=== PATIENT | female | born 1940 | race American Indian/Alaskan Native ===

== ENCOUNTER 2021-11-29 02:31 | Emergency (ER) | payer MEDICARE ==
--- NOTE | 2021-11-29 07:30 | Emergency Department Report ---
ED General Adult HPI - General Chief complaint: Altered Mental Status Stated complaint: DEMENTIA,AMS PUI?: No Time Seen by Provider: 11/29/21 07:04 Source: family (GRANDDAUGHTER) Mode of arrival: Stretcher Limitations: No Limitations - History of Present Illness Initial comments: All information is obtained from granddaughter as patient is AOX1 GCS15; pleasantly demented. This is a 72-year-old pleasantly demented female brought in by caring granddaughter with concern of violent behavior. According to the granddaughter patient has a medical history of dementia and no other medical conditions that she is aware of. The history is that patient is becoming more combative with aggressive behavior. Today patient was found wandering around in the street and [place] da silva took her to the police station and they brought her here to be medically checked. Granddaughter was notified that patient is in the ER. Granddaughter states she was recently seen at [facility] with behavior health evaluation and recommended Seroquel; however the medications helping. The patient has a history of wandering off in the street multiple times in the past and also becomes combative fighting the granddaughter who the patient herself does not know who the granddaughter is. Patient does not know who the president what year or what day it is. Patient is not able to provide any review of system. - Related Data Allergies Allergy/AdvReac Type Severity Reaction Status Date / Time No Known Allergies Allergy Unverified 11/29/21 04:53 ED Review of Systems ROS: Stated complaint: DEMENTIA,AMS Other details as noted in HPI Comment: Unobtainable due to pts medical conditions Constitutional: no symptoms reported Respiratory: no symptoms reported Endocrine: no symptoms reported ED Past Medical Hx - Past Medical History Previous Medical History?: Yes Hx Dementia: Yes - Surgical History Past Surgical History?: No - Social History Smoking Status: Never Smoker Substance Use Type: None ED Physical Exam - General Limitations: Altered Mental Status (Pleasantly demented) General appearance: alert, in no apparent distress - Head Head exam: Present: atraumatic, normocephalic, normal inspection - Eye Eye exam: Present: normal appearance, PERRL, EOMI Pupils: Present: normal accommodation - ENT ENT exam: Present: normal exam, mucous membranes moist - Neck Neck exam: Present: normal inspection, full ROM - Respiratory Respiratory exam: Present: normal lung sounds bilaterally - Cardiovascular Cardiovascular Exam: Present: regular rate, normal rhythm, normal heart sounds - GI/Abdominal GI/Abdominal exam: Present: soft - Extremities Exam Extremities exam: Present: normal inspection, full ROM, normal capillary refill - Back Exam Back exam: Present: normal inspection, full ROM - Neurological Exam Neurological exam: Present: alert, altered, CN II-XII intact, normal gait, motor sensory deficit - Psychiatric Psychiatric exam: Present: normal affect, normal mood - Skin Skin exam: Present: normal color ED Course Vital Signs 11/29/21 02:32 Temperature 98 F Pulse Rate 78 Respiratory 18 Rate Blood Pressure 132/78 O2 Sat by Pulse 100 Oximetry - Reevaluation(s) Reevaluation #1: 11/29/21 15:15 PENDING UA/COVID TEST; MENTAL HEALTH RECOMMEND INPATIENT; WILL SIGN OUT PATIENT CARE TO MY COLLEAGUE, DR. ROOT. - Consultations Consultation #1: 11/29/21 12:33 Need UA, UDS, labs and COVID test ORDER and results for inpatient psyc referral. Megha Nelson LPC Initialized on 11/29/21 07:53 - END OF NOTE I WILL OBTAIN UDS/UA/COVID TEST. ED Medical Decision Making - Lab Data Result diagrams: 11/29/21 07:31 11/29/21 07:31 Critical care attestation.: If time is entered above; I have spent that time in minutes in the direct care of this critically ill patient, excluding procedure time. ED Disposition Condition: Stable Additional Instructions: OUTPATIENT MENTAL HEALTH RESOURCES [facility], [facility] Usman Simon MD: [address], [address] [facility] [address] [place] [address] [place] [address] [facility]: [employer] [place] [address] [place] [address] [phone] [facility]: [facility]: [address] [facility] [address] [facility] [place] [address] [facility] [address] [facility]: Erik Enriquez MD: [address] [facility] [address] [place], [place] [address] [facility]: [address] [place] [phone] [place] CRISIS AND ACCESS LINE: Referrals: CARINA DE LA VEGA MD [Primary Care Provider] - 3-5 Days
[2021-11-29 09:36] LABS: Hematocrit 33.8 % (30.3-42.9); Hemoglobin 11.1 gm/dl (10.1-14.3); Mean Corpuscular HGB Conc 33 % (30-34); Mean Corpuscular Volume 93 fl (79-97); Platelet Count 212 K/mm3 (140-440); Red Blood Count 3.65 M/mm3 (3.65-5.03)
[2021-11-29 09:47] LABS: BUN/Creatinine Ratio 15; Blood Urea Nitrogen 12 mg/dL (7-17); Calcium 9.1 mg/dL (8.4-10.2); Hemolysis Index 31
[2021-11-29] MEDS ORDERED: diphenhydrAMINE 50 MG/ML VIAL IM ONE (12:38)
[2021-11-29] MEDS ORDERED: LORazepam 2 MG/ML VIAL IM ONE (12:39)
--- NOTE | 2021-11-29 13:33 | Consultation ---
History of Present Illness - Reason for Consult Consult date: 11/29/21 Reason for consult: MHE - History of Present Psychiatric Illness HPI 80 year old female was seen in the ER with grand daughter. Patient was questioned but was confused and could not give a good account of the situation. Patient thinks she is in [place] and didn't know who the president is. Patients grand daughter stated that they noted a year ago that patient was being forgetful and recently very aggressive. Patient was taken to [place] recently and was discharged with seroquel prescription which she had not filled due to the fact that patient left the house in the middle of the night on the same day. Grand daughter very worried she might endanger herself. Patient c urrently does not have a dx and not taking any medications. Psych will follow at this time and recommend inpatient psychiatric hospitalization. PAST PSYCHIATRIC HISTORY: Diagnoses: No Suicide attempts or Self-harm behavior: unable to assess Prior psychiatric hospitalizations: unable to assess Substance Abuse history:unable to assess Previous psychiatric medications tried: No Outpatient treatment: unable to assess PAST MEDICAL HISTORY: Family Psychiatric History None reported or documented SOCIAL HISTORY Marital Status: Single Living Arrangements: With grand daughter Employment Status: Retired Access to guns/weapons: unable to assess Education: unable to assess History of Abuse: unable to assess Legal History: unable to assess REVIEW OF SYSTEMS ROS cannot be reliably obtained from the patient due to her confusion and somn olence. Constitutional: Negative for weight loss ENT: Negative for stridor Respiratory: Negative for cough or hemoptysis All other systems reviewed and are negative MENTAL STATUS General Appearance and Behavior: age appropriate, good eye contact, cooperative with questioning and polite Cooperation: Combative Psychomotor Behavior: within normal limits Mood: OK Affect and affective range: Congruent with stated mood Thought Process: Disorganised Thought Content: Confused Speech: Normal volume and Regular rate and rhythm Intellectual Functioning Average Suicidal Ideation: unable to assess Homicidal Ideation: unable to assess Impulse Control: intact Insight and Judgment:Poor Memory: Confused Attention: Poor Orientation: Confused RECOMMENDATIONS MEDICAL: Per primary team DELIRIUM PRECAUTIONS: Please re-orient patient frequently, keep lights on during the day, and minimize benzodiazepines and opiates as these medications could worsen patient's confusion. 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 Please contact with any questions and/or concerns. Medications and Allergies Allergies Allergy/AdvReac Type Severity Reaction Status Date / Time No Known Allergies Allergy Unverified 11/29/21 04:53 Mental Status Exam - Vital signs Last Vital Signs Temp 98 F 11/29/21 02:32 Pulse 78 11/29/21 02:32 Resp 18 11/29/21 02:32 BP 132/78 11/29/21 02:32 Pulse Ox 100 11/29/21 02:32 Results Result Diagrams: 11/29/21 07:31 11/29/21 07:31 Abnormal lab results 11/29/21 Range/Units 07:31 WBC 4.2 L (4.5-11.0) K/mm3 RDW 13.0 L (13.2-15.2) % All other labs normal.
[2021-11-29 23:14] VITALS: BP 103/46
== END 2021-11-29 21:50 | disposition home or self-care (01) ==
LOC: EDBD → ED 02:31
DX: F03.90 Unspecified dementia, unspecified severity, without behavioral disturbance, psychotic disturbance, mood disturbance, and anxiety (principal); F91.1 Conduct disorder, childhood-onset type
CPT/HCPCS: 36415; 80048; 83735; 85027; 96372; 99283; J1200; J2060

== ENCOUNTER 2021-11-30 13:02 | Emergency (ER) | payer MEDICARE ==
--- NOTE | 2021-11-30 13:52 | Emergency Department Report ---
ED Recheck HPI - General Stated Complaint: VIOLENT BEHAVIOR Time Seen by Provider: 11/30/21 13:52 Source: patient, family Mode of arrival: Ambulatory Limitations: No Limitations - History of Present Illness Initial Comments: Patient was seen in the ER yesterday and was supposed to have been admitted. Dr. Jessica says that he turned over care to another physician and the patient was discharged. The family took the patient home but has had behavioral disturbances and outburst since. So they come back to the ER. Dr. Jessica called to triage. Case management called from triage. Patient is to be worked up again for potential admission and/or referral to neuropsych. - Related Data Allergies Allergy/AdvReac Type Severity Reaction Status Date / Time No Known Allergies Allergy Unverified 11/29/21 04:53 ED Review of Systems ROS: Stated complaint: VIOLENT BEHAVIOR Other details as noted in HPI Comment: All other systems reviewed and negative ED Past Medical Hx - Past Medical History Previous Medical History?: Yes Hx Dementia: Yes - Surgical History Past Surgical History?: Yes - Family History Family history: no significant - Social History Smoking Status: Never Smoker Substance Use Type: None ED Course Vital Signs 11/30/21 13:43 Temperature 98.9 F Pulse Rate 93 H Respiratory 14 Rate Blood Pressure 131/74 O2 Sat by Pulse 99 Oximetry ED Recheck MDM - Core Measures Measure Exclusions: not indicated - Medical Decision Making MD to see Critical care attestation.: If time is entered above; I have spent that time in minutes in the direct care of this critically ill patient, excluding procedure time. ED Disposition Clinical Impression: Dementia Disposition: 30 STILL A PATIENT Is pt being admited?: No Does the pt Need Aspirin: No Condition: Stable Time of Disposition: 16:25
[2021-11-30 13:54] VITALS: BP 131/74
[2021-11-30 15:02] LABS: Basophils % (Auto) 0.9 % (0.0-1.8); Eosinophils % (Auto) 0.8 % (0.0-4.3); Hemoglobin 11.6 gm/dl (10.1-14.3); Lymphocytes # (Auto) 1.7 K/mm3 (1.2-5.4); Mean Corpuscular HGB Conc 33 % (30-34); Mean Corpuscular Volume 92 fl (79-97); Monocytes # (Auto) 0.3 K/mm3 (0.0-0.8); Monocytes % (Auto) 7.4 % (0.0-7.3); Platelet Count 234 K/mm3 (140-440); Red Cell Distribution Width 13.3 % (13.2-15.2)
[2021-11-30 15:38] LABS: Alanine Aminotransferase 9 units/L (7-56); Albumin 4.2 g/dL (3.9-5); BUN/Creatinine Ratio 11; Blood Urea Nitrogen 11 mg/dL (7-17); Calcium 9.1 mg/dL (8.4-10.2); Hemolysis Index 3
== END 2021-11-30 19:00 | disposition still patient (30) ==
LOC: ED 13:02
DX: F03.90 Unspecified dementia, unspecified severity, without behavioral disturbance, psychotic disturbance, mood disturbance, and anxiety (principal)
CPT/HCPCS: 36415; 80053; 80320; 84443; 85025; 99283; G0480

== ENCOUNTER 2021-11-30 19:44 | Emergency (ER) | payer MEDICARE ==
[2021-11-30 23:00] LABS: Basophils # (Auto) 0.1 K/mm3 (0.0-0.1); Basophils % (Auto) 1.2 % (0.0-1.8); Eosinophils # (Auto) 0.1 K/mm3 (0.0-0.4); Eosinophils % (Auto) 1.3 % (0.0-4.3); Hematocrit 32.7 % (30.3-42.9); Hemoglobin 11.2 gm/dl (10.1-14.3); Lymphocytes # (Auto) 2.1 K/mm3 (1.2-5.4); Lymphocytes % (Auto) 43.2 % (13.4-35.0); Mean Corpuscular HGB Conc 34 % (30-34); Mean Corpuscular Volume 92 fl (79-97); Monocytes # (Auto) 0.3 K/mm3 (0.0-0.8); Monocytes % (Auto) 6.5 % (0.0-7.3); Platelet Count 217 K/mm3 (140-440); Red Blood Count 3.55 M/mm3 (3.65-5.03); Red Cell Distribution Width 13.2 % (13.2-15.2)
--- NOTE | 2021-11-30 23:10 | Emergency Department Report ---
ED Psych HPI - General Stated Complaint: AGGRESSIVE BEHAVIOR Time Seen by Provider: 11/30/21 22:29 - History of Present Illness Initial Comments: 80 yo F brought in by EMS after she was found wondering around the neighborhood. Pt was noticed wondering around he psych unit. History is very limited. - Related Data Home Medications Medication Instructions Recorded Confirmed Last Taken QUEtiapine [SEROquel] 12.5 mg PO DAILY PRN 12/02/21 12/02/21 Unknown Allergies Allergy/AdvReac Type Severity Reaction Status Date / Time No Known Allergies Allergy Verified 12/02/21 02:05 ED Review of Systems ROS: Stated complaint: AGGRESSIVE BEHAVIOR Other details as noted in HPI Comment: All other systems reviewed and negative Psychiatric: other (agitation ) ED Past Medical Hx - Past Medical History Hx Dementia: Yes - Social History Smoking Status: Never Smoker Substance Use Type: None - Medications Home Medications: Home Medications Medication Instructions Recorded Confirmed Last Taken Type QUEtiapine [SEROquel] 12.5 mg PO DAILY PRN 12/02/21 12/02/21 Unknown History ED Physical Exam - General Limitations: No Limitations General appearance: alert, in no apparent distress, other (restless) - Head Head exam: Present: normal inspection - Eye Eye exam: Present: normal appearance - ENT ENT exam: Present: normal exam, normal orophraynx, mucous membranes moist - Neck Neck exam: Present: normal inspection. Absent: tenderness - Respiratory Respiratory exam: Present: normal lung sounds bilaterally. Absent: respiratory distress, accessory muscle use - Cardiovascular Cardiovascular Exam: Present: regular rate, normal rhythm, normal heart sounds - GI/Abdominal GI/Abdominal exam: Present: soft, normal bowel sounds. Absent: distended, tenderness - Extremities Exam Extremities exam: Present: normal inspection, full ROM, normal capillary refill. Absent: tenderness, pedal edema - Back Exam Back exam: Present: normal inspection. Absent: tenderness - Neurological Exam Neurological exam: Present: alert, oriented X3 - Psychiatric Psychiatric exam: Present: agitated, anxious, other (restless) - Skin Skin exam: Present: warm, normal color ED Course Vital Signs 11/30/21 12/01/21 12/01/21 23:29 08:16 08:17 Temperature 98.8 F Pulse Rate 98 H 86 Respiratory 16 18 Rate Blood Pressure 105/55 107/59 [Left] O2 Sat by Pulse 98 98 98 Oximetry 12/01/21 15:59 Temperature 98.1 F Pulse Rate 81 Respiratory 20 Rate Blood Pressure 126/83 [Left] O2 Sat by Pulse 97 Oximetry ED Medical Decision Making - Lab Data Result diagrams: 11/30/21 22:32 11/30/21 22:32 - Medical Decision Making here for mental evaluation -- after she was found wondering around neighborhood -- will order routine labs for any organic cause -- Critical care attestation.: If time is entered above; I have spent that time in minutes in the direct care of this critically ill patient, excluding procedure time. ED Disposition Clinical Impression: Agitation, Restless Disposition: ADMITTED INPATIENT Is pt being admited?: Yes Does the pt Need Aspirin: No Condition: Stable Additional Instructions: OUTPATIENT MENTAL HEALTH RESOURCES [facility], [facility] Usman Simon MD: [address] [place] [address] [place] [address] [place] [facility]: [employer] [place] [address] [place] [address] [phone] [facility] Integrative Psychiatry: [facility]: [address] [facility] [address] [facility] [place] [address] [facility] [id number] [facility]: Erik Enriquez MD: [address] [facility] [address] [facility] [address] [id number] [facility]: [address] [facility] [address] [phone] [place] CRISIS AND ACCESS LINE: Referrals: CARINA DE LA VEGA MD [Primary Care Provider] - 3-5 Days
[2021-11-30 23:13] LABS: Albumin 4.2 g/dL (3.9-5); Calcium 9.2 mg/dL (8.4-10.2)
[2021-11-30] MEDS ORDERED: ZIPRASIDONE MESYLATE 20 MG VIAL IM ONE (23:15)
[2021-12-01 13:18] LABS: Amphetamine Screen,Urine Negative; Benzodiazepines Screen,Urine Negative; Cannabinoid Screen,Urine Negative; Cocaine Screen,Urine Negative; Methadone Screen,Urine Negative; Opiate Screen,Urine Negative
[2021-12-01 13:22] LABS: Bacteria,Urine 1+ /HPF (Negative); Hyaline Casts,Urine 1 /LPF; Mucus,Urine FEW /HPF
[2021-12-01 13:32] LABS: Color,Urine Straw (Yellow)
[2021-12-01 13:33] LABS: Bilirubin,Urine Negative (Negative); Blood,Urine Negative (Negative); Protein,Urine <30 mg dL mg/dL (Negative)
[2021-12-01 13:34] LABS: Urobilinogen,Urine < 2.0 mg/dL (<2.0)
--- NOTE | 2021-12-01 15:00 | Consultation ---
History of Present Illness - Reason for Consult Consult date: 11/30/21 Reason for consult: MHE - Chief Complaint Chief complaint: - History of Present Psychiatric Illness HPI 80 year old female was seen in the ER with grand daughter. Patient was questioned but was confused and could not give a good account of the situation. Patient thinks she is in [place] and didn't know who the president is. Patients grand daughter stated that they noted a year ago that patient was being forgetful and recently very aggressive. Patient was taken to [place] recently and was discharged with seroquel prescription which she had not filled due to the fact that patient left the house in the middle of the night on the same day. Grand daughter very worried she might endanger herself. Patient currently does not have a dx and not taking any medications. Psych will follow at this time and recommend inpatient psychiatric hospitalization. PAST PSYCHIATRIC HISTORY: Diagnoses: No Suicide attempts or Self-harm behavior: unable to assess Prior psychiatric hospitalizations: unable to assess Substance Abuse history:unable to assess Previous psychiatric medications tried: No Outpatient treatment: unable to assess PAST MEDICAL HISTORY: Family Psychiatric History None reported or documented SOCIAL HISTORY Marital Status: Single Living Arrangements: With grand daughter Employment Status: Retired Access to guns/weapons: unable to assess Education: unable to assess History of Abuse: unable to assess Legal History: unable to assess REVIEW OF SYSTEMS ROS cannot be reliably obtained from the patient due to her confusion and somnolence. Constitutional: Negative for weight loss ENT: Negative for stridor Respiratory: Negative for cough or hemoptysis All other systems reviewed and are negative MENTAL STATUS General Appearance and Behavior: age appropriate, good eye contact, cooperative with questioning and polite Cooperation: Combative Psychomotor Behavior: within normal limits Mood: OK Affect and affective range: Congruent with stated mood Thought Process: Disorganised Thought Content: Confused Speech: Normal volume and Regular rate and rhythm Intellectual Functioning Average Suicidal Ideation: unable to assess Homicidal Ideation: unable to assess Impulse Control: intact Insight and Judgment:Poor Memory: Confused Attention: Poor Orientation: Confused RECOMMENDATIONS MEDICAL: Per primary team DELIRIUM PRECAUTIONS: Please re-orient patient frequently, keep lights on during the day, and minimize benzodiazepines and opiates as these medications could worsen patient's confusion. 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 Please contact with any questions and/or concerns. Medications and Allergies Medications and Allergies Allergies Allergy/AdvReac Type Severity Reaction Status Date / Time No Known Allergies Allergy Unverified 11/29/21 04:53 Mental Status Exam - Vital signs Last Vital Signs Temp 98.8 F 12/01/21 08:16 Pulse 86 12/01/21 08:16 Resp 18 12/01/21 08:16 BP 107/59 12/01/21 08:16 Pulse Ox 98 12/01/21 08:17 Results Result Diagrams: 11/30/21 22:32 11/30/21 22:32 Abnormal lab results 11/30/21 11/30/21 11/30/21 Range/Units 22:32 22:32 22:32 RBC 3.55 L (3.65-5.03) M/mm3 Lymph % (Auto) 43.2 H (13.4-35.0) % Creatinine 1.3 H (0.6-1.2) mg/dL Glucose 104 H (65-100) mg/dL U Epithel Cells (Auto) (0-13.0) /HPF Salicylates < 0.3 L (2.8-20.0) mg/dL Acetaminophen (10.0-30.0) ug/mL 11/30/21 12/01/21 Range/Units 22:32 12:56 RBC (3.65-5.03) M/mm3 Lymph % (Auto) (13.4-35.0) % Creatinine (0.6-1.2) mg/dL Glucose (65-100) mg/dL U Epithel Cells (Auto) 16.0 H (0-13.0) /HPF Salicylates (2.8-20.0) mg/dL Acetaminophen 5.0 L (10.0-30.0) ug/mL All other labs normal.
[2021-12-01 15:59] VITALS: BP 126/83
--- NOTE | 2021-12-01 16:04 | Event Note ---
Date: 12/01/21 Patient received a geriatric psych bed. Will discharge from ED.
== END 2021-12-01 19:58 | disposition admitted as inpatient to this hospital (09) ==
LOC: EEVIPCON 19:44 → ED 19:44
DX: R45.1 Restlessness and agitation (principal); F03.90 Unspecified dementia, unspecified severity, without behavioral disturbance, psychotic disturbance, mood disturbance, and anxiety; Z20.822 Contact with and (suspected) exposure to COVID-19
CPT/HCPCS: 36415; 80053; 80307; 81001; 84443; 85025; 96372; 99284; J3486; U0003; 80320; G0480

== ENCOUNTER 2021-12-01 15:36 | Inpatient (IN) | payer MEDICARE ==
--- NOTE | 2021-12-02 11:39 | History and Physical Report ---
GP History & Physical - History of Present Illness Date of admission: 12/01/21 Date of Examination: 12/02/21 Reason for Admission: Danger to self, Severe anxiety/depression History of Present Illness: HPI 80 year old seen today in the day room. Patient was unable to give a clear account of why she was brought to the hospital and is a poor historian. Grand daughter gave most of the information that is recorded. PAST PSYCHIATRIC HISTORY: Diagnoses: None Suicide attempts or Self-harm behavior Prior psychiatric hospitalizations Substance Abuse history: Previous psychiatric medications tried: Outpatient treatment: PAST MEDICAL HISTORY: Family Psychiatric History None reported or documented SOCIAL HISTORY Marital Status: Single Living Arrangements: With grand daughter Employment Status: Retired Access to guns/weapons: Denies Education: Unable to access History of Abuse: Unable to access Legal History: Unable to access REVIEW OF SYSTEMS ROS cannot be reliably obtained from the patient due to her confusion and somnolence. Constitutional: Negative for weight loss ENT: Negative for stridor Respiratory: Negative for cough or hemoptysis All other systems reviewed and are negative Diagnoses: Dementia with behavioral disturbances Treatment Plan Patient will be admitted for inpatient psychiatric evaluation, medication adjustment and close monitoring The patient's behavior, mood, sleep and appetite will be closely monitored. Patient will be enrolled in individual and group therapeutic sessions and encouraged to attend. Patient will be provided with a safe and structured environment. Patient's physical health needs will be addressed by the Hospitalist. Hospitalist Consulted Labs including CBC, CMP, Lipid profile and Hemoglobin A1C ordered Social Assessment will be completed and the Transit Mix Operator will work with patient and family to ensure a suitable and safe disposition Medication adjustment will be made as clinically indicated Usual Wellness Latter-Day/Preservation: - Start [place]-3 for brain health, reduce impulsivity, and as adjunctive treatment for mood disorder, continue upon discharge given overall benefits. The patient agreed on the treatment plan, understood the risk, benefit, alternative treatment, potential consequence of no treatment, and gave informed consent. Legal Status: Involuntary Reaction to Hospitalization: Accepting Medications and Allergies Allergies Allergy/AdvReac Type Severity Reaction Status Date / Time No Known Allergies Allergy Verified 12/02/21 02:05 Home Medications Medication Instructions Recorded Confirmed Last Taken Type QUEtiapine [SEROquel] 12.5 mg PO DAILY PRN 12/02/21 12/02/21 Unknown History Results - Results Labs/Vitals: Last Vital Signs Temp 97.7 F 12/01/21 21:40 Pulse 87 12/01/21 21:40 Resp 18 12/01/21 21:40 BP 90/66 12/01/21 21:40 Pulse Ox 100 12/01/21 21:40 Physical Examination - Constitutional Vitals: Vital Signs Temp Pulse Resp BP Pulse Ox 97.7 F 87 18 90/66 100 12/01/21 21:40 12/01/21 21:40 12/01/21 21:40 12/01/21 21:40 12/01/21 21:40 Temperature -Last 24 Hours Temperature 97.7 F Mental Status Exam - Vital signs Last Vital Signs Temp 97.7 F 12/01/21 21:40 Pulse 87 12/01/21 21:40 Resp 18 12/01/21 21:40 BP 90/66 12/01/21 21:40 Pulse Ox 100 12/01/21 21:40 Physician Certification - Certification Statement Physician Certification Statement: This is an acknowledgement statement that MILLY LAUREN is a 80 year old F who requires inpatient psychiatric admission for treatment which could reasonably be expected to improve the patient's condition for Estimated period of time patient will need to remain in the hospital: [ ] Plan for post-hospital care: [ ]
[2021-12-02 12:32] LABS: Chol/HDL Ratio 2.45 %
[2021-12-02 13:22] LABS: Hepatitis B Surface Antigen Non-Reactive (Negative); Hepatitis C Virus Antibody Non-Reactive (NonReactive)
[2021-12-02] MEDS: LORazepam 0.5 MG TAB PO PRN (18:34)
--- NOTE | 2021-12-02 19:40 | Consultation ---
History of Present Illness - Reason for Consult Consult date: 12/02/21 Medical consult Requesting physician: DENG LAMBERT - History of Present Illness 80-year-old female patient with no significant past medical history was admitted [facility] with history of danger to self, severeanxiety and depression Hospitalist service yes requested medical consult and management Patient was minimally communicative most of the history is taken from a psych chart patient was brought by her family because of danger to self and due to severe anxiety and depression Patient unable to give history, no known medical history Patient denies any headache or dizziness Patient denies any chest pain or shortness of breath denies any nausea vomiting, but is very anxious Patient lives with her granddaughter Past History Past Medical History: other (Anxiety and depression) Past Surgical History: No surgical history Social history: denies: smoking, alcohol abuse, prescription drug abuse Family history: no significant family history Medications and Allergies Allergies Allergy/AdvReac Type Severity Reaction Status Date / Time No Known Allergies Allergy Verified 12/02/21 02:05 Home Medications Medication Instructions Recorded Confirmed Last Taken Type QUEtiapine [SEROquel] 12.5 mg PO DAILY PRN 12/02/21 12/02/21 Unknown History Active Meds: Active Medications Lorazepam (Lorazepam 0.5 Mg Tab) 0.5 mg PO Q6H PRN PRN Reason: Agitation Last Admin: 12/02/21 18:34 Dose: 0.5 mg Quetiapine Fumarate (Quetiapine 25 Mg Tab) 12.5 mg PO QHS RADHA Review of Systems Constitutional: fatigue, weakness Ears, nose, mouth and throat: no nasal discharge, no sinus pressure Cardiovascular: no chest pain, no shortness of breath Respiratory: no cough, no shortness of breath Gastrointestinal: no abdominal pain, no nausea, no vomiting Genitourinary Female: no pelvic pain, no dysuria Musculoskeletal: no myalgias, no arthritis Integumentary: no rash, no lesions Neurological: no seizures, no syncope Psychiatric: anxiety, depression Endocrine: no cold intolerance, no heat intolerance Hematologic/Lymphatic: no easy bruising, no easy bleeding Allergic/Immunologic: no urticaria, no allergic rhinitis Exam - Constitutional Vitals: Temp Pulse Resp BP Pulse Ox 97.7 F 87 18 90/66 100 12/01/21 21:40 12/01/21 21:40 12/01/21 21:40 12/01/21 21:40 12/01/21 21:40 General appearance: Present: no acute distress, well-nourished, other - EENT Eyes: Present: PERRL, EOM intact - Neck Neck: Present: supple, normal ROM - Respiratory Respiratory effort: normal Respiratory: bilateral: diminished, negative: rales, rhonchi, wheezing - Cardiovascular Rhythm: regular Heart Sounds: Present: S1 & S2 - Extremities Extremities: no ischemia, No edema - Abdominal General gastrointestinal: Present: soft, non-tender, non-distended, normal bowel sounds - Integumentary Integumentary: Present: clear, warm - Musculoskeletal Musculoskeletal: strength equal bilaterally, generalized weakness - Psychiatric Psychiatric: cooperative, depressed - Neurologic Neurologic: moves all extremities Results - Labs Labs: Abnormal lab results 12/02/21 12/02/21 Range/Units 11:20 11:20 Hemoglobin A1c 6.1 H (4-6) % Cholesterol 201 H (50-199) mg/dL HDL Cholesterol 82 H (40-59) mg/dL Assessment and Plan --Danger to self; Continue supervision, fall precautions Supportive care --severe anxiety and depression Management per psych -- DVT prophylaxis; SCDs while resting, ambulate as tolerated --Full CODE STATUS We will closely monitor the patient and adjust management as needed Plan of care reviewed with the patient and her nurse Thank you for this consultation We will follow the patient along with you
[2021-12-02] MEDS ORDERED: QUEtiapine 25 MG TAB PO SCH (22:00)
[2021-12-03] MEDS: LORazepam 0.5 MG TAB PO PRN ×2 (00:28→13:16)
--- NOTE | 2021-12-03 10:30 | Progress Note ---
Subjective Date of service: 12/03/21 Principal diagnosis: Dementia w/Behavioral Disturbance Subjective Comment: The patient was seen today. She is calm, cooperative and pleasant. She says she slept good and feels good. She denies SI/HI or hallucinations. Staff says the patient becomes more confused and agitated as the day goes by. She has also been observed responding to internal stimuli and delusional. REVIEW OF SYSTEMS ROS cannot be reliably obtained from the patient due to her confusion and somnolence. Constitutional: Negative for weight loss ENT: Negative for stridor Respiratory: Negative for cough or hemoptysis All other systems reviewed and are negative Diagnoses: Dementia with behavioral disturbances Treatment Plan Patient will be admitted for inpatient psychiatric evaluation, medication adjustment and close monitoring The patient's behavior, mood, sleep and appetite will be closely monitored. Patient will be enrolled in individual and group therapeutic sessions and encouraged to attend. Patient will be provided with a safe and structured environment. Patient's physical health needs will be addressed by the Hospitalist. Hospitalist Consulted Labs including CBC, CMP, Lipid profile and Hemoglobin A1C ordered Social Assessment will be completed and the Supervisor Cell Operation will work with patient and family to ensure a suitable and safe disposition Medication adjustment will be made as clinically indicated D/c seroquel Start Risperidone 0.25mg po BID Usual Wellness Orthodoxy/Preservation: - Start [place]-3 for brain health, reduce impulsivity, and as adjunctive treatment for mood disorder, continue upon discharge given overall benefits. The patient agreed on the treatment plan, understood the risk, benefit, alternative treatment, potential consequence of no treatment, and gave informed consent. Medications and Allergies Allergies Allergy/AdvReac Type Severity Reaction Status Date / Time No Known Allergies Allergy Verified 12/02/21 02:05 Home Medications Medication Instructions Recorded Confirmed Last Taken Type QUEtiapine [SEROquel] 12.5 mg PO DAILY PRN 12/02/21 12/02/21 Unknown History Active Meds: Active Medications Lorazepam (Lorazepam 0.5 Mg Tab) 0.5 mg PO Q6H PRN PRN Reason: Agitation Last Admin: 12/03/21 00:28 Dose: 0.5 mg Quetiapine Fumarate (Quetiapine 25 Mg Tab) 12.5 mg PO QHS RADHA Last Admin: 12/02/21 21:29 Dose: 12.5 mg Results - Results Labs/Vitals: Laboratory Last Values Hemoglobin A1c 6.1 % (4-6) H 12/02/21 11:20 Triglycerides 62 mg/dL (2-149) 12/02/21 11:20 Cholesterol 201 mg/dL (50-199) H 12/02/21 11:20 LDL Cholesterol Direct 112 mg/dL (50-130) 12/02/21 11:20 HDL Cholesterol 82 mg/dL (40-59) H 12/02/21 11:20 Cholesterol/HDL Ratio 2.45 % 12/02/21 11:20 TSH 0.721 mlU/mL (0.270-4.200) 12/02/21 11:20 Hepatitis A IgM Ab Non-reactive (NonReactive) 12/02/21 11:20 Hep Bs Antigen Non-reactive (Negative) 12/02/21 11:20 Hep B Core IgM Ab Non-reactive (NonReactive) 12/02/21 11:20 Hepatitis C Antibody Non-reactive (NonReactive) 12/02/21 11:20 Last Vital Signs Temp 98.4 F 12/02/21 19:40 Pulse 82 12/02/21 19:40 Resp 16 12/03/21 01:51 BP 90/66 12/01/21 21:40 Pulse Ox 100 12/03/21 01:51
--- NOTE | 2021-12-03 20:25 | Progress Note ---
Assessment and Plan Assessment and plan: --Danger to self; Continue supervision, fall precautions Supportive care --severe anxiety and depression Management per psych -- DVT prophylaxis; SCDs while resting, ambulate as tolerated --Full CODE STATUS Continue current management We will closely monitor the patient and adjust management as needed Plan of care reviewed with the patient and her nurse Thank you for this consultation We will follow the patient along with you History Interval history: I have seen and examined the patient in the room this afternoon. Patient has no new complaints Alert and awake responding appropriately Vital signs noted No new overnight events reported by nursing Hospitalist Physical - Constitutional Vitals: Temp Pulse Resp BP Pulse Ox 98.4 F 82 16 90/66 100 12/02/21 19:40 12/02/21 19:40 12/03/21 01:51 12/01/21 21:40 12/03/21 01:51 General appearance: Present: no acute distress, well-nourished, other - EENT Eyes: Present: PERRL, EOM intact - Neck Neck: Present: supple, normal ROM - Respiratory Respiratory effort: normal Respiratory: bilateral: diminished, negative: rales, rhonchi, wheezing - Cardiovascular Rhythm: regular Heart Sounds: Present: S1 & S2 - Extremities Extremities: no ischemia, No edema - Abdominal General gastrointestinal: soft, non-tender, non-distended, normal bowel sounds - Integumentary Integumentary: Present: clear, warm - Psychiatric Psychiatric: appropriate mood/affect, cooperative - Neurologic Neurologic: moves all extremities Results - Labs Labs: Laboratory Last Values Hemoglobin A1c 6.1 % (4-6) H 12/02/21 11:20 Triglycerides 62 mg/dL (2-149) 12/02/21 11:20 Cholesterol 201 mg/dL (50-199) H 12/02/21 11:20 LDL Cholesterol Direct 112 mg/dL (50-130) 12/02/21 11:20 HDL Cholesterol 82 mg/dL (40-59) H 12/02/21 11:20 Cholesterol/HDL Ratio 2.45 % 12/02/21 11:20 TSH 0.721 mlU/mL (0.270-4.200) 12/02/21 11:20 Hepatitis A IgM Ab Non-reactive (NonReactive) 12/02/21 11:20 Hep Bs Antigen Non-reactive (Negative) 12/02/21 11:20 Hep B Core IgM Ab Non-reactive (NonReactive) 12/02/21 11:20 Hepatitis C Antibody Non-reactive (NonReactive) 12/02/21 11:20 Cobb/IV: Voiding Method Incontinent Active Medications - Current Medications Current Medications: Generic Name Dose Route Start Last Admin Trade Name Freq PRN Reason Stop Dose Admin Lorazepam 0.5 mg 12/02/21 18:11 12/03/21 13:16 Lorazepam 0.5 Mg Tab PO 0.5 mg Q6H PRN Administration Agitation Risperidone 0.25 mg 12/03/21 22:00 Risperidone 0.25 Mg Tab PO BID RADHA
[2021-12-03] MEDS: risperiDONE 0.25 MG TAB PO SCH (21:38)
--- NOTE | 2021-12-04 08:21 | Progress Note ---
Subjective Date of service: 12/04/21 Principal diagnosis: Dementia w/Behavioral Disturbance Subjective Comment: The patient was seen today. She is sleeping, but easily arouses. She is confused. She says she slept well. She denies SI/HI or hallucinations. 12/03 The patient was seen today. She is calm, cooperative and pleasant. She says she slept good and feels good. She denies SI/HI or hallucinations. Staff says the patient becomes more confused and agitated as the day goes by. She has also been observed responding to internal stimuli and delusional. REVIEW OF SYSTEMS ROS cannot be reliably obtained from the patient due to her confusion and somnolence. Constitutional: Negative for weight loss ENT: Negative for stridor Respiratory: Negative for cough or hemoptysis All other systems reviewed and are negative Diagnoses: Dementia with behavioral disturbances Treatment Plan Patient will be admitted for inpatient psychiatric evaluation, medication adjustment and close monitoring The patient's behavior, mood, sleep and appetite will be closely monitored. Patient will be enrolled in individual and group therapeutic sessions and enc ouraged to attend. Patient will be provided with a safe and structured environment. Patient's physical health needs will be addressed by the Hospitalist. Hospitalist Consulted Labs including CBC, CMP, Lipid profile and Hemoglobin A1C ordered Social Assessment will be completed and the Employee Communications Coordinator will work with patient and family to ensure a suitable and safe disposition Medication adjustment will be made as clinically indicated Start Risperidone 0.25mg po BID yesterday No changes made today Usual Wellness Yarsani/Preservation: - Start [place]-3 for brain health, reduce impulsivity, and as adjunctive treatment for mood disorder, continue upon discharge given overall benefits. The patient agreed on the treatment plan, understood the risk, benefit, alternative treatment, potential consequence of no treatment, and gave informed consent. Medications and Allergies Allergies Allergy/AdvReac Type Severity Reaction Status Date / Time No Known Allergies Allergy Verified 12/02/21 02:05 Home Medications Medication Instructions Recorded Confirmed Last Taken Type QUEtiapine [SEROquel] 12.5 mg PO DAILY PRN 12/02/21 12/02/21 Unknown History Active Meds: Active Medications Lorazepam (Lorazepam 0.5 Mg Tab) 0.5 mg PO Q6H PRN PRN Reason: Agitation Last Admin: 12/03/21 13:16 Dose: 0.5 mg Risperidone (Risperidone 0.25 Mg Tab) 0.25 mg PO BID [facility] Last Admin: 12/03/21 21:38 Dose: 0.25 mg Results - Results Labs/Vitals: Laboratory Last Values Hemoglobin A1c 6.1 % (4-6) H 12/02/21 11:20 Triglycerides 62 mg/dL (2-149) 12/02/21 11:20 Cholesterol 201 mg/dL (50-199) H 12/02/21 11:20 LDL Cholesterol Direct 112 mg/dL (50-130) 12/02/21 11:20 HDL Cholesterol 82 mg/dL (40-59) H 12/02/21 11:20 Cholesterol/HDL Ratio 2.45 % 12/02/21 11:20 TSH 0.721 mlU/mL (0.270-4.200) 12/02/21 11:20 Hepatitis A IgM Ab Non-reactive (NonReactive) 12/02/21 11:20 Hep Bs Antigen Non-reactive (Negative) 12/02/21 11:20 Hep B Core IgM Ab Non-reactive (NonReactive) 12/02/21 11:20 Hepatitis C Antibody Non-reactive (NonReactive) 12/02/21 11:20 Last Vital Signs Temp 97.6 F 12/03/21 20:00 Pulse 80 12/03/21 20:00 Resp 16 12/03/21 20:00 BP 111/76 12/03/21 20:00 Pulse Ox 99 12/03/21 20:00
[2021-12-04] MEDS: risperiDONE 0.25 MG TAB PO SCH ×2 (09:08→21:35)
[2021-12-04] MEDS: LORazepam 0.5 MG TAB PO PRN ×2 (11:30→21:35)
--- NOTE | 2021-12-04 15:14 | Progress Note ---
Assessment and Plan Assessment and plan: --Danger to self; Continue supervision, fall precautions Supportive care --severe anxiety and depression Management per psych -- DVT prophylaxis; SCDs while resting, ambulate as tolerated --Full CODE STATUS Continue current management We will closely monitor the patient and adjust management as needed Plan of care reviewed with the patient and her nurse Thank you for this consultation We will follow the patient along with you History Interval history: I have seen and examined the patient at the bedside Patient's chart and records reviewed No new overnight events reported by the nursing Hospitalist Physical - Constitutional Vitals: Temp Pulse Resp BP Pulse Ox 98.5 F 90 18 109/51 100 12/04/21 09:43 12/04/21 09:43 12/04/21 09:43 12/04/21 09:43 12/04/21 09:43 General appearance: Present: no acute distress, well-nourished, other - EENT Eyes: Present: PERRL, EOM intact - Neck Neck: Present: supple, normal ROM - Respiratory Respiratory effort: normal Respiratory: bilateral: diminished, negative: rales, rhonchi, wheezing - Cardiovascular Rhythm: regular Heart Sounds: Present: S1 & S2 - Extremities Extremities: no ischemia, No edema - Abdominal General gastrointestinal: soft, non-tender, non-distended, normal bowel sounds - Integumentary Integumentary: Present: clear, warm - Psychiatric Psychiatric: appropriate mood/affect, other (Confused at times) - Neurologic Neurologic: CNII-XII intact, moves all extremities Results - Labs Labs: Laboratory Last Values Hemoglobin A1c 6.1 % (4-6) H 12/02/21 11:20 Triglycerides 62 mg/dL (2-149) 12/02/21 11:20 Cholesterol 201 mg/dL (50-199) H 12/02/21 11:20 LDL Cholesterol Direct 112 mg/dL (50-130) 12/02/21 11:20 HDL Cholesterol 82 mg/dL (40-59) H 12/02/21 11:20 Cholesterol/HDL Ratio 2.45 % 12/02/21 11:20 TSH 0.721 mlU/mL (0.270-4.200) 12/02/21 11:20 Hepatitis A IgM Ab Non-reactive (NonReactive) 12/02/21 11:20 Hep Bs Antigen Non-reactive (Negative) 12/02/21 11:20 Hep B Core IgM Ab Non-reactive (NonReactive) 12/02/21 11:20 Hepatitis C Antibody Non-reactive (NonReactive) 12/02/21 11:20 Cobb/IV: Voiding Method Toilet Active Medications - Current Medications Current Medications: Generic Name Dose Route Start Last Admin Trade Name Freq PRN Reason Stop Dose Admin Lorazepam 0.5 mg 12/02/21 18:11 12/04/21 11:30 Lorazepam 0.5 Mg Tab PO 0.5 mg Q6H PRN Administration Agitation Risperidone 0.25 mg 12/03/21 22:00 12/04/21 09:08 Risperidone 0.25 Mg Tab PO 0.25 mg BID RADHA Administration
--- NOTE | 2021-12-05 09:46 | Progress Note ---
Subjective Date of service: 12/05/21 Principal diagnosis: Dementia w/Behavioral Disturbance Subjective Comment: The patient was seen today. She says she is doing fine and denies hallucinations. Staff notes that at times the patient is tearful, agitated and seeking exits 12/04 The patient was seen today. She is sleeping, but easily arouses. She is confused. She says she slept well. She denies SI/HI or hallucinations. 12/03 The patient was seen today. She is calm, cooperative and pleasant. She says she slept good and feels good. She denies SI/HI or hallucinations. Staff says the patient becomes more confused and agitated as the day goes by. She has also been observed responding to internal stimuli and delusional. REVIEW OF SYSTEMS ROS cannot be reliably obtained from the patient due to her confusion and somnolence. Constitutional: Negative for weight loss ENT: Negative for stridor Respiratory: Negative for cough or hemoptysis All other systems reviewed and are negative Diagnoses: Dementia with behavioral disturbances Treatment Plan Patient will be admitted for inpatient psychiatric evaluation, medication adjustment and close monitoring The patient's behavior, mood, sleep and appetite will be closely monitored. Patient will be enrolled in individual and group therapeutic sessions and encouraged to attend. Patient will be provided with a safe and structured environment. Patient's physical health needs will be addressed by the Hospitalist. Hospitalist Consulted Labs including CBC, CMP, Lipid profile and Hemoglobin A1C ordered Social Assessment will be completed and the Entry Level Automotive Technician will work with patient and family to ensure a suitable and safe disposition Medication adjustment will be made as clinically indicated Start Depakote DR 125mg po BID Usual Wellness Yazidi/Preservation: - Start [place]-3 for brain health, reduce impulsivity, and as adjunctive treatment for mood disorder, continue upon discharge given overall benefits. The patient agreed on the treatment plan, understood the risk, benefit, alternative treatment, potential consequence of no treatment, and gave informed consent. Medications and Allergies Allergies Allergy/AdvReac Type Severity Reaction Status Date / Time No Known Allergies Allergy Verified 12/02/21 02:05 Home Medications Medication Instructions Recorded Confirmed Last Taken Type QUEtiapine [SEROquel] 12.5 mg PO DAILY PRN 12/02/21 12/02/21 Unknown History Active Meds: Active Medications Lorazepam (Lorazepam 0.5 Mg Tab) 0.5 mg PO Q6H PRN PRN Reason: Agitation Last Admin: 12/04/21 21:35 Dose: 0.5 mg Risperidone (Risperidone 0.25 Mg Tab) 0.25 mg PO BID RADHA Last Admin: 12/04/21 21:35 Dose: 0.25 mg Results - Results Labs/Vitals: Laboratory Last Values Hemoglobin A1c 6.1 % (4-6) H 12/02/21 11:20 Triglycerides 62 mg/dL (2-149) 12/02/21 11:20 Cholesterol 201 mg/dL (50-199) H 12/02/21 11:20 LDL Cholesterol Direct 112 mg/dL (50-130) 12/02/21 11:20 HDL Cholesterol 82 mg/dL (40-59) H 12/02/21 11:20 Cholesterol/HDL Ratio 2.45 % 12/02/21 11:20 TSH 0.721 mlU/mL (0.270-4.200) 12/02/21 11:20 Hepatitis A IgM Ab Non-reactive (NonReactive) 12/02/21 11:20 Hep Bs Antigen Non-reactive (Negative) 12/02/21 11:20 Hep B Core IgM Ab Non-reactive (NonReactive) 12/02/21 11:20 Hepatitis C Antibody Non-reactive (NonReactive) 12/02/21 11:20 Last Vital Signs Temp 98.3 F 12/04/21 19:53 Pulse 104 H 12/04/21 19:53 Resp 17 12/04/21 19:53 BP 105/50 12/04/21 19:53 Pulse Ox 100 12/04/21 19:53
[2021-12-05] MEDS: DIVALPROEX DR 125 MG TAB PO SCH ×2 (10:25→22:21)
[2021-12-05] MEDS: risperiDONE 0.25 MG TAB PO SCH ×2 (10:25→22:21)
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
--- NOTE | 2021-12-05 13:46 | Progress Note ---
Assessment and Plan Assessment and plan: --Danger to self; Continue supervision, fall precautions Supportive care --severe anxiety and depression Management per psych -- DVT prophylaxis; SCDs while resting, ambulate as tolerated --Full CODE STATUS Continue current management We will closely monitor the patient and adjust management as needed Plan of care reviewed with the patient and her nurse Thank you for this consultation We will follow the patient along with you Call us with questions History Interval history: Seen and examined the patient in the day room today Patient's chart and medications reviewed Nurse was trying to give her her morning meds, patient is adamantly refusing Getting angry and becoming verbal Slightly agitated vital signs noted Patient did not have any new overnight events Hospitalist Physical - Constitutional Vitals: Temp Pulse Resp BP Pulse Ox 100.2 F H 83 18 102/44 97 12/05/21 08:50 12/05/21 08:50 12/05/21 08:50 12/05/21 08:50 12/05/21 08:50 General appearance: Present: no acute distress, well-nourished, other - EENT Eyes: Present: PERRL, EOM intact, scleral icterus - Neck Neck: Present: supple, normal ROM - Respiratory Respiratory effort: normal Respiratory: bilateral: diminished, negative: rales, rhonchi, wheezing - Cardiovascular Rhythm: regular Heart Sounds: Present: S1 & S2 - Extremities Extremities: no ischemia, No edema - Abdominal General gastrointestinal: soft, non-tender, non-distended, normal bowel sounds - Integumentary Integumentary: Present: clear, warm - Psychiatric Psychiatric: appropriate mood/affect, cooperative - Neurologic Neurologic: CNII-XII intact, moves all extremities Results - Labs Labs: Laboratory Last Values Hemoglobin A1c 6.1 % (4-6) H 12/02/21 11:20 Triglycerides 62 mg/dL (2-149) 12/02/21 11:20 Cholesterol 201 mg/dL (50-199) H 12/02/21 11:20 LDL Cholesterol Direct 112 mg/dL (50-130) 12/02/21 11:20 HDL Cholesterol 82 mg/dL (40-59) H 12/02/21 11:20 Cholesterol/HDL Ratio 2.45 % 12/02/21 11:20 TSH 0.721 mlU/mL (0.270-4.200) 12/02/21 11:20 Hepatitis A IgM Ab Non-reactive (NonReactive) 12/02/21 11:20 Hep Bs Antigen Non-reactive (Negative) 12/02/21 11:20 Hep B Core IgM Ab Non-reactive (NonReactive) 12/02/21 11:20 Hepatitis C Antibody Non-reactive (NonReactive) 12/02/21 11:20 Cobb/IV: Voiding Method Toilet Active Medications - Current Medications Current Medications: Generic Name Dose Route Start Last Admin Trade Name Freq PRN Reason Stop Dose Admin Divalproex Sodium 125 mg 12/05/21 10:00 12/05/21 10:[address] 125 Mg Tab PO 125 mg BID RADHA Administration Lorazepam 0.5 mg 12/02/21 18:11 12/04/21 21:35 Lorazepam 0.5 Mg Tab PO 0.5 mg Q6H PRN Administration Agitation Risperidone 0.25 mg 12/03/21 22:00 12/05/21 10:25 Risperidone 0.25 Mg Tab PO 0.25 mg BID RADHA Administration Sertraline HCl 25 mg 12/05/21 12:00 Sertraline 25 Mg Tab PO QDAY RADHA Trazodone HCl 50 mg 12/05/21 22:00 Trazodone 50 Mg Tab PO QHS RADHA
[2021-12-05] MEDS: SERTRALINE 25 MG TAB PO SCH (14:05)
[2021-12-05] MEDS: LORazepam 0.5 MG TAB PO PRN (14:20)
[2021-12-05] MEDS: traZODone 50 MG TAB PO SCH (22:21)
--- NOTE | 2021-12-06 08:25 | Progress Note ---
Assessment and Plan Assessment and plan: --Danger to self; Continue supervision, fall precautions Supportive care --severe anxiety and depression Management per psych -- DVT prophylaxis; SCDs while resting, ambulate as tolerated --Full CODE STATUS Continue current management We will closely monitor the patient and adjust management as needed Plan of care reviewed with the patient and her nurse Thank you for this consultation We will follow the patient along with you Call us with questions History Interval history: -Have seen the patient and the room this morning Patient looks better enjoying in the balloon activity with the group Anxious to go home No new overnight events reported by the nursing Vital signs stable Hospitalist Physical - Constitutional Vitals: Temp Pulse Resp BP Pulse Ox 97.9 F 91 H 17 123/50 99 12/05/21 19:25 12/05/21 19:25 12/05/21 19:25 12/05/21 19:25 12/05/21 19:25 General appearance: Present: no acute distress, well-nourished - EENT Eyes: Present: PERRL, EOM intact ENT: hearing intact - Neck Neck: Present: supple, normal ROM - Respiratory Respiratory effort: normal Respiratory: bilateral: diminished, negative: rales, rhonchi, wheezing - Cardiovascular Rhythm: regular Heart Sounds: Present: S1 & S2 - Extremities Extremities: no ischemia, No edema - Integumentary Integumentary: Present: clear, warm - Psychiatric Psychiatric: appropriate mood/affect, cooperative - Neurologic Neurologic: moves all extremities Results - Labs Labs: Laboratory Last Values Hemoglobin A1c 6.1 % (4-6) H 12/02/21 11:20 Triglycerides 62 mg/dL (2-149) 12/02/21 11:20 Cholesterol 201 mg/dL (50-199) H 12/02/21 11:20 LDL Cholesterol Direct 112 mg/dL (50-130) 12/02/21 11:20 HDL Cholesterol 82 mg/dL (40-59) H 12/02/21 11:20 Cholesterol/HDL Ratio 2.45 % 12/02/21 11:20 TSH 0.721 mlU/mL (0.270-4.200) 12/02/21 11:20 Hepatitis A IgM Ab Non-reactive (NonReactive) 12/02/21 11:20 Hep Bs Antigen Non-reactive (Negative) 12/02/21 11:20 Hep B Core IgM Ab Non-reactive (NonReactive) 12/02/21 11:20 Hepatitis C Antibody Non-reactive (NonReactive) 12/02/21 11:20 Cobb/IV: Voiding Method Toilet Active Medications - Current Medications Current Medications: Generic Name Dose Route Start Last Admin Trade Name Freq PRN Reason Stop Dose Admin Divalproex Sodium 125 mg 12/05/21 10:00 12/05/21 22:[address] 125 Mg Tab PO 125 mg BID RADHA Administration Lorazepam 0.5 mg 12/02/21 18:11 12/05/21 14:20 Lorazepam 0.5 Mg Tab PO 0.5 mg Q6H PRN Administration Agitation Risperidone 0.25 mg 12/03/21 22:00 12/05/21 22:21 Risperidone 0.25 Mg Tab PO 0.25 mg BID RADHA Administration Sertraline HCl 25 mg 12/05/21 12:00 12/05/21 14:05 Sertraline 25 Mg Tab PO 25 mg QDAY RADHA Administration Trazodone HCl 50 mg 12/05/21 22:00 12/05/21 22:21 Trazodone 50 Mg Tab PO 50 mg QHS RADHA Administration
[2021-12-06] MEDS: DIVALPROEX DR 125 MG TAB PO SCH ×2 (09:21→21:50)
[2021-12-06] MEDS: risperiDONE 0.25 MG TAB PO SCH ×2 (09:21→21:51)
[2021-12-06] MEDS: SERTRALINE 25 MG TAB PO SCH (09:21)
--- NOTE | 2021-12-06 11:17 | Progress Note ---
Subjective Date of service: 12/06/21 Principal diagnosis: Dementia w/Behavioral Disturbance Subjective Comment: The patient was seen today. She is pleasant. She denies SI/HI or hallucinations of any time. The patient does have episodes of agitation, according to staff. 12/05 The patient was seen today. She says she is doing fine and denies hallucinations. Staff notes that at times the patient is tearful, agitated and seeking exits 12/04 The patient was seen today. She is sleeping, but easily arouses. She is confused. She says she slept well. She denies SI/HI or hallucinations. 12/03 The patient was seen today. She is calm, cooperative and pleasant. She says she slept good and feels good. She denies SI/HI or hallucinations. Staff says the patient becomes more confused and agitated as the day goes by. She has also been observed responding to internal stimuli and delusional. REVIEW OF SYSTEMS ROS cannot be reliably obtained from the patient due to her confusion and somnolence. Constitutional: Negative for weight loss ENT: Negative for stridor Respiratory: Negative for cough or hemoptysis All other systems reviewed and are negative Diagnoses: Dementia with behavioral disturbances Treatment Plan Patient will be admitted for inpatient psychiatric evaluation, medication adju stment and close monitoring The patient's behavior, mood, sleep and appetite will be closely monitored. Patient will be enrolled in individual and group therapeutic sessions and encouraged to attend. Patient will be provided with a safe and structured environment. Patient's physical health needs will be addressed by the Hospitalist. Hospitalist Consulted Labs including CBC, CMP, Lipid profile and Hemoglobin A1C ordered Social Assessment will be completed and the Religious Educator will work with patient and family to ensure a suitable and safe disposition Medication adjustment will be made as clinically indicated Start Depakote DR 125mg po BID yesterday No changes made today Usual Wellness Scientologist/Preservation: - Start [place]-3 for brain health, reduce impulsivity, and as adjunctive treatment for mood disorder, continue upon discharge given overall benefits. The patient agreed on the treatment plan, understood the risk, benefit, alternative treatment, potential consequence of no treatment, and gave informed consent. Medications and Allergies Allergies Allergy/AdvReac Type Severity Reaction Status Date / Time No Known Allergies Allergy Verified 12/02/21 02:05 Home Medications Medication Instructions Recorded Confirmed Last Taken Type QUEtiapine [SEROquel] 12.5 mg PO DAILY PRN 12/02/21 12/02/21 Unknown History Active Meds: Active Medications Divalproex Sodium (Divalproex Dr 125 Mg Tab) 125 mg PO BID [facility] Last Admin: 12/06/21 09:21 Dose: 125 mg Lorazepam (Lorazepam 0.5 Mg Tab) 0.5 mg PO Q6H PRN PRN Reason: Agitation Last Admin: 12/05/21 14:20 Dose: 0.5 mg Risperidone (Risperidone 0.25 Mg Tab) 0.25 mg PO BID [facility] Last Admin: 12/06/21 09:21 Dose: 0.25 mg Sertraline HCl (Sertraline 25 Mg Tab) 25 mg PO QDAY [facility] Last Admin: 12/06/21 09:21 Dose: 25 mg Trazodone HCl (Trazodone 50 Mg Tab) 50 mg PO QHS [facility] Last Admin: 12/05/21 22:21 Dose: 50 mg Results - Results Labs/Vitals: Laboratory Last Values Hemoglobin A1c 6.1 % (4-6) H 12/02/21 11:20 Triglycerides 62 mg/dL (2-149) 12/02/21 11:20 Cholesterol 201 mg/dL (50-199) H 12/02/21 11:20 LDL Cholesterol Direct 112 mg/dL (50-130) 12/02/21 11:20 HDL Cholesterol 82 mg/dL (40-59) H 12/02/21 11:20 Cholesterol/HDL Ratio 2.45 % 12/02/21 11:20 TSH 0.721 mlU/mL (0.270-4.200) 12/02/21 11:20 Hepatitis A IgM Ab Non-reactive (NonReactive) 12/02/21 11:20 Hep Bs Antigen Non-reactive (Negative) 12/02/21 11:20 Hep B Core IgM Ab Non-reactive (NonReactive) 12/02/21 11:20 Hepatitis C Antibody Non-reactive (NonReactive) 12/02/21 11:20 Last Vital Signs Temp 97.9 F 12/05/21 19:25 Pulse 91 H 12/05/21 19:25 Resp 17 12/05/21 19:25 BP 123/50 12/05/21 19:25 Pulse Ox 99 12/05/21 19:25
[2021-12-06] MEDS: traZODone 50 MG TAB PO SCH (21:51)
[2021-12-07] MEDS: SERTRALINE 25 MG TAB PO SCH (09:24)
[2021-12-07] MEDS: DIVALPROEX DR 125 MG TAB PO SCH ×2 (09:24→21:26)
[2021-12-07] MEDS: risperiDONE 0.25 MG TAB PO SCH ×2 (09:24→21:26)
--- NOTE | 2021-12-07 11:21 | Progress Note ---
Assessment and Plan - Patient Problems (1) Vascular dementia with behavior disturbance Current Visit: Yes Status: Acute Plan to address problem: For prompting, verbal redirection, benzodiazepine therapy as clinically indicated. (2) Cerebral atherosclerosis Current Visit: Yes Status: Acute Plan to address problem: Risk factor reduction, antiplatelet therapy as clinically indicated (3) Major depression Current Visit: Yes Status: Acute Qualifiers: Psychotic features: with psychotic features Plan to address problem: Continue medical management, behavior change counseling, cognitive behavioral therapy. Supportive care (4) Generalized anxiety disorder Current Visit: Yes Status: Acute Plan to address problem: Benzodiazepine therapy as clinical indicated (5) Advance care planning Current Visit: Yes Status: Acute Plan to address problem: Disease education data, care plan discussed, diagnosis discussed, prognosis discussed, patient is full code, +30 minutes. (6) Preventative health care Current Visit: Yes Status: Acute Plan to address problem: Patient counseled regarding home safety, outpatient follow-up with primary care physician for all age and risk factor appropriate screening test. +30 minutes. History Interval history: 81 YO Female with Vascular Dementia with behavioral disturbance, Cerebral Atherosclerosis, MDD, TAB admitted [facility] for psychiatric stabilization. Patient seen and evaluated in the recreation room. Patient appears to be at baseline level of cognition and function. No reported nursing events. Hospitalist Physical - Constitutional Vitals: Temp Pulse Resp BP Pulse Ox 98.3 F 76 18 113/52 100 12/07/21 11:08 12/07/21 11:08 12/07/21 11:08 12/07/21 11:08 12/07/21 11:08 General appearance: Present: no acute distress, well-nourished - EENT Eyes: Present: PERRL ENT: hearing decreased - Neck Neck: Present: supple - Respiratory Respiratory effort: normal Respiratory: bilateral: diminished - Cardiovascular Rhythm: regular Heart Sounds: Present: S1 & S2 - Extremities Extremities: no ischemia Peripheral Pulses: within normal limits - Abdominal General gastrointestinal: soft, non-tender, non-distended - Integumentary Integumentary: Present: clear, dry - Psychiatric Psychiatric: cooperative - Neurologic Neurologic: CNII-XII intact Results - Labs Labs: Laboratory Last Values Hemoglobin A1c 6.1 % (4-6) H 12/02/21 11:20 Triglycerides 62 mg/dL (2-149) 12/02/21 11:20 Cholesterol 201 mg/dL (50-199) H 12/02/21 11:20 LDL Cholesterol Direct 112 mg/dL (50-130) 12/02/21 11:20 HDL Cholesterol 82 mg/dL (40-59) H 12/02/21 11:20 Cholesterol/HDL Ratio 2.45 % 12/02/21 11:20 TSH 0.721 mlU/mL (0.270-4.200) 12/02/21 11:20 Hepatitis A IgM Ab Non-reactive (NonReactive) 12/02/21 11:20 Hep Bs Antigen Non-reactive (Negative) 12/02/21 11:20 Hep B Core IgM Ab Non-reactive (NonReactive) 12/02/21 11:20 Hepatitis C Antibody Non-reactive (NonReactive) 12/02/21 11:20 Cobb/IV: Voiding Method Diaper Active Medications - Current Medications Current Medications: Generic Name Dose Route Start Last Admin Trade Name Freq PRN Reason Stop Dose Admin Divalproex Sodium 125 mg 12/05/21 10:00 12/07/21 09:[address] 125 Mg Tab PO 125 mg BID RADHA Administration Lorazepam 0.5 mg 12/02/21 18:11 12/05/21 14:20 Lorazepam 0.5 Mg Tab PO 0.5 mg Q6H PRN Administration Agitation Risperidone 0.25 mg 12/03/21 22:00 12/07/21 09:24 Risperidone 0.25 Mg Tab PO 0.25 mg BID RADHA Administration Sertraline HCl 25 mg 12/05/21 12:00 12/07/21 09:24 Sertraline 25 Mg Tab PO 25 mg QDAY RADHA Administration Trazodone HCl 50 mg 12/05/21 22:00 12/06/21 21:51 Trazodone 50 Mg Tab PO Not Given QHS RADHA
[2021-12-07] MEDS: LORazepam 0.5 MG TAB PO PRN (17:48)
[2021-12-07] MEDS: traZODone 50 MG TAB PO SCH (21:26)
[2021-12-08] MEDS: risperiDONE 0.25 MG TAB PO SCH ×2 (09:41→21:02)
[2021-12-08] MEDS: SERTRALINE 25 MG TAB PO SCH (09:41)
[2021-12-08] MEDS: DIVALPROEX DR 125 MG TAB PO SCH ×2 (09:41→21:02)
--- NOTE | 2021-12-08 16:14 | Progress Note ---
Subjective Date of service: 12/08/21 Principal diagnosis: Dementia w/Behavioral Disturbance Subjective Comment: The patient was seen today. She is calm and cooperative. She does seem a little irritable today. She denies SI/HI or hallucinations. Staff says the patient continues to [place] and is restless at night REVIEW OF SYSTEMS ROS cannot be reliably obtained from the patient due to her confusion and somnolence. Constitutional: Negative for weight loss ENT: Negative for stridor Respiratory: Negative for cough or hemoptysis All other systems reviewed and are negative Diagnoses: Dementia with behavioral disturbances Treatment Plan Patient will be admitted for inpatient psychiatric evaluation, medication adjustment and close monitoring The patient's behavior, mood, sleep and appetite will be closely monitored. Patient will be enrolled in individual and group therapeutic sessions and encouraged to attend. Patient will be provided with a safe and structured environment. Patient's physical health needs will be addressed by the Hospitalist. Hospitalist Consulted Labs including CBC, CMP, Lipid profile and Hemoglobin A1C ordered Social Assessment will be completed and the Associate Store Director will work with patient and family to ensure a suitable and safe disposition Medication adjustment will be made as clinically indicated Start Melatonin 5mg po qhs prn insomnia Usual Wellness Sabianist/Preservation: - Start [place]-3 for brain health, reduce impulsivity, and as adjunctive treatment for mood disorder, continue upon discharge given overall benefits. The patient agreed on the treatment plan, understood the risk, benefit, alternative treatment, potential consequence of no treatment, and gave informed consent. Medications and Allergies Allergies Allergy/AdvReac Type Severity Reaction Status Date / Time No Known Allergies Allergy Verified 12/02/21 02:05 Home Medications Medication Instructions Recorded Confirmed Last Taken Type QUEtiapine [SEROquel] 12.5 mg PO DAILY PRN 12/02/21 12/02/21 Unknown History Active Meds: Active Medications Divalproex Sodium (Divalproex Dr 125 Mg Tab) 125 mg PO BID RADHA Last Admin: 12/08/21 09:41 Dose: 125 mg Lorazepam (Lorazepam 0.5 Mg Tab) 0.5 mg PO Q6H PRN PRN Reason: Agitation Last Admin: 12/07/21 17:48 Dose: 0.5 mg Risperidone (Risperidone 0.25 Mg Tab) 0.25 mg PO BID RADHA Last Admin: 12/08/21 09:41 Dose: 0.25 mg Sertraline HCl (Sertraline 25 Mg Tab) 25 mg PO QDAY [facility] Last Admin: 12/08/21 09:41 Dose: 25 mg Trazodone HCl (Trazodone 50 Mg Tab) 50 mg PO QHS [facility] Last Admin: 12/07/21 21:26 Dose: 50 mg Results - Results Labs/Vitals: Laboratory Last Values Hemoglobin A1c 6.1 % (4-6) H 12/02/21 11:20 Triglycerides 62 mg/dL (2-149) 12/02/21 11:20 Cholesterol 201 mg/dL (50-199) H 12/02/21 11:20 LDL Cholesterol Direct 112 mg/dL (50-130) 12/02/21 11:20 HDL Cholesterol 82 mg/dL (40-59) H 12/02/21 11:20 Cholesterol/HDL Ratio 2.45 % 12/02/21 11:20 TSH 0.721 mlU/mL (0.270-4.200) 12/02/21 11:20 Hepatitis A IgM Ab Non-reactive (NonReactive) 12/02/21 11:20 Hep Bs Antigen Non-reactive (Negative) 12/02/21 11:20 Hep B Core IgM Ab Non-reactive (NonReactive) 12/02/21 11:20 Hepatitis C Antibody Non-reactive (NonReactive) 12/02/21 11:20 Last Vital Signs Temp 97.6 F 12/08/21 09:00 Pulse 83 12/08/21 09:00 Resp 20 12/08/21 09:00 BP 102/46 12/08/21 09:00 Pulse Ox 98 12/08/21 09:00
[2021-12-08] MEDS: traZODone 50 MG TAB PO SCH (21:02)
[2021-12-08] MEDS: MELATONIN 5 MG TAB PO PRN (21:02)
--- NOTE | 2021-12-09 08:55 | Progress Note ---
Subjective Date of service: 12/09/21 Principal diagnosis: Dementia w/Behavioral Disturbance Subjective Comment: The patient was seen today. She was sleeping but easily arouses. She says she slept well. The patient says she feels fine. She denies SI/HI or hallucinations. She is awaiting placement. REVIEW OF SYSTEMS ROS cannot be reliably obtained from the patient due to her confusion and somnolence. Constitutional: Negative for weight loss ENT: Negative for stridor Respiratory: Negative for cough or hemoptysis All other systems reviewed and are negative Diagnoses: Dementia with behavioral disturbances Treatment Plan Patient will be admitted for inpatient psychiatric evaluation, medication adjustment and close monitoring The patient's behavior, mood, sleep and appetite will be closely monitored. Patient will be enrolled in individual and group therapeutic sessions and encouraged to attend. Patient will be provided with a safe and structured environment. Patient's physical health needs will be addressed by the Hospitalist. Hospitalist Consulted Labs including CBC, CMP, Lipid profile and Hemoglobin A1C ordered Social Assessment will be completed and the Correctional Casework Specialist will work with patient and family to ensure a suitable and safe disposition Medication adjustment will be made as clinically indicated Start Melatonin 5mg po qhs prn insomnia yesterday No changes made today Usual Wellness Muslim/Preservation: - Start [place]-3 for brain health, reduce impulsivity, and as adjunctive treatment for mood disorder, continue upon discharge given overall benefits. The patient agreed on the treatment plan, understood the risk, benefit, alternative treatment, potential consequence of no treatment, and gave informed consent. Medications and Allergies Allergies Allergy/AdvReac Type Severity Reaction Status Date / Time No Known Allergies Allergy Verified 12/02/21 02:05 Home Medications Medication Instructions Recorded Confirmed Last Taken Type QUEtiapine [SEROquel] 12.5 mg PO DAILY PRN 12/02/21 12/02/21 Unknown History Active Meds: Active Medications Divalproex Sodium (Divalproex Dr 125 Mg Tab) 125 mg PO BID RADHA Last Admin: 12/08/21 21:02 Dose: 125 mg Lorazepam (Lorazepam 0.5 Mg Tab) 0.5 mg PO Q6H PRN PRN Reason: Agitation Last Admin: 12/07/21 17:48 Dose: 0.5 mg Melatonin (Melatonin 5 Mg Tab) 5 mg PO QHS PRN PRN Reason: Sleep Last Admin: 12/08/21 21:02 Dose: 5 mg Risperidone (Risperidone 0.25 Mg Tab) 0.25 mg PO BID [facility] Last Admin: 12/08/21 21:02 Dose: 0.25 mg Sertraline HCl (Sertraline 25 Mg Tab) 25 mg PO QDAY [facility] Last Admin: 12/08/21 09:41 Dose: 25 mg Trazodone HCl (Trazodone 50 Mg Tab) 50 mg PO QHS [facility] Last Admin: 12/08/21 21:02 Dose: 50 mg Results - Results Labs/Vitals: Laboratory Last Values Hemoglobin A1c 6.1 % (4-6) H 12/02/21 11:20 Triglycerides 62 mg/dL (2-149) 12/02/21 11:20 Cholesterol 201 mg/dL (50-199) H 12/02/21 11:20 LDL Cholesterol Direct 112 mg/dL (50-130) 12/02/21 11:20 HDL Cholesterol 82 mg/dL (40-59) H 12/02/21 11:20 Cholesterol/HDL Ratio 2.45 % 12/02/21 11:20 TSH 0.721 mlU/mL (0.270-4.200) 12/02/21 11:20 Hepatitis A IgM Ab Non-reactive (NonReactive) 12/02/21 11:20 Hep Bs Antigen Non-reactive (Negative) 12/02/21 11:20 Hep B Core IgM Ab Non-reactive (NonReactive) 12/02/21 11:20 Hepatitis C Antibody Non-reactive (NonReactive) 12/02/21 11:20 Last Vital Signs Temp 97.3 F L 12/08/21 19:02 Pulse 77 12/08/21 19:02 Resp 18 12/08/21 19:02 BP 112/54 12/08/21 19:02 Pulse Ox 99 12/08/21 19:02
[2021-12-09] MEDS: SERTRALINE 25 MG TAB PO SCH (09:57)
[2021-12-09] MEDS: risperiDONE 0.25 MG TAB PO SCH ×2 (09:57→21:13)
[2021-12-09] MEDS: DIVALPROEX DR 125 MG TAB PO SCH ×2 (09:57→21:13)
--- NOTE | 2021-12-09 18:41 | Progress Note ---
Assessment and Plan - Patient Problems (1) Vascular dementia with behavior disturbance Current Visit: Yes Status: Acute Plan to address problem: For prompting, verbal redirection, benzodiazepine therapy as clinically indicated. (2) Cerebral atherosclerosis Current Visit: Yes Status: Acute Plan to address problem: Risk factor reduction, antiplatelet therapy as clinically indicated (3) Major depression Current Visit: Yes Status: Acute Qualifiers: Psychotic features: with psychotic features Plan to address problem: Continue medical management, behavior change counseling, cognitive behavioral therapy. Supportive care (4) Generalized anxiety disorder Current Visit: Yes Status: Acute Plan to address problem: Benzodiazepine therapy as clinical indicated (5) Advance care planning Current Visit: Yes Status: Acute Plan to address problem: Disease education data, care plan discussed, diagnosis discussed, prognosis discussed, patient is full code, +30 minutes. (6) Preventative health care Current Visit: Yes Status: Acute Plan to address problem: Patient counseled regarding home safety, outpatient follow-up with primary care physician for all age and risk factor appropriate screening test. +30 minutes. History Interval history: 81 YO Female with Vascular Dementia with behavioral disturbance, Cerebral Atherosclerosis, MDD, TAB admitted [facility] for psychiatric stabilization. Patient seen and evaluated in the recreation room. Patient appears to be at baseline level of cognition and function. No reported nursing events. Hospitalist Physical - Constitutional Vitals: Temp Pulse Resp BP Pulse Ox 97.7 F 74 20 102/49 97 12/09/21 07:14 12/09/21 07:14 12/09/21 07:14 12/09/21 07:14 12/09/21 07:14 General appearance: Present: no acute distress, well-nourished - EENT Eyes: Present: PERRL ENT: hearing decreased - Neck Neck: Present: supple - Respiratory Respiratory effort: normal Respiratory: bilateral: diminished - Cardiovascular Rhythm: regular Heart Sounds: Present: S1 & S2 - Extremities Extremities: no ischemia Peripheral Pulses: within normal limits - Abdominal General gastrointestinal: soft, non-tender, non-distended - Integumentary Integumentary: Present: clear, dry - Psychiatric Psychiatric: cooperative - Neurologic Neurologic: CNII-XII intact Results - Labs Labs: Laboratory Last Values Hemoglobin A1c 6.1 % (4-6) H 12/02/21 11:20 Triglycerides 62 mg/dL (2-149) 12/02/21 11:20 Cholesterol 201 mg/dL (50-199) H 12/02/21 11:20 LDL Cholesterol Direct 112 mg/dL (50-130) 12/02/21 11:20 HDL Cholesterol 82 mg/dL (40-59) H 12/02/21 11:20 Cholesterol/HDL Ratio 2.45 % 12/02/21 11:20 TSH 0.721 mlU/mL (0.270-4.200) 12/02/21 11:20 Hepatitis A IgM Ab Non-reactive (NonReactive) 12/02/21 11:20 Hep Bs Antigen Non-reactive (Negative) 12/02/21 11:20 Hep B Core IgM Ab Non-reactive (NonReactive) 12/02/21 11:20 Hepatitis C Antibody Non-reactive (NonReactive) 12/02/21 11:20 Cobb/IV: Voiding Method Toilet Active Medications - Current Medications Current Medications: Generic Name Dose Route Start Last Admin Trade Name Freq PRN Reason Stop Dose Admin Divalproex Sodium 125 mg 12/05/21 10:00 12/09/21 09:[address] 125 Mg Tab PO 125 mg BID RADHA Administration Lorazepam 0.5 mg 12/02/21 18:11 12/07/21 17:48 Lorazepam 0.5 Mg Tab PO 0.5 mg Q6H PRN Administration Agitation Melatonin 5 mg 12/08/21 16:15 12/08/21 21:02 Melatonin 5 Mg Tab PO 5 mg QHS PRN Administration Sleep Risperidone 0.25 mg 12/03/21 22:00 12/09/21 09:57 Risperidone 0.25 Mg Tab PO 0.25 mg BID RADHA Administration Sertraline HCl 25 mg 12/05/21 12:00 12/09/21 09:57 Sertraline 25 Mg Tab PO 25 mg QDAY RADHA Administration Trazodone HCl 50 mg 12/05/21 22:00 12/08/21 21:02 Trazodone 50 Mg Tab PO 50 mg QHS RADHA Administration Nutrition/Malnutrition Assess - Dietary Evaluation Nutrition/Malnutrition Findings: Nutrition Notes Start: 12/08/21 15:13 Freq: Status: Active Protocol: Document 12/08/21 15:13 LEANNA (Rec: 12/08/21 15:27 LEANNA [id number]) Nutrition Notes Need for Assessment generated from: LOS Initial or Follow up Assessment Other Pertinent Diagnosis Dementia w/Behavioral Disturbance, Anxiety, Depression. Current Diet Regular Diet (since B 12/02). Labs/Tests 12/08: HbA1c 6.1%. Pertinent Medications 12/08: Nutritionally unremarkable. Height 5 ft 7 in Weight 81.64 kg [place] Body Weight (kg) 61.36 BMI 28.1 Intake Prior to Admission Good Weight change and time frame Pt denies having loss body weight BEAUTY SPECIALIST. Weight Status Overweight Subjective/Other Information RD consult for LOS assessment. Pt's PO intake of meals has been Good (75-100%) and well tolerated, according to ADL notes. Pt is on Room Air, O2 saturation @ 98%, according to Physical Assessment History notes. Percent of energy/protein needs met: Prescribed Regular Diet provides for energy/protein needs (2,289 Kcal/89 g) during LOS. Burn Absent Trauma Absent GI Symptoms None Food Allergy No Skin Integrity/Comment Assessment WNL. Current % PO Good (75-100%) Minimum of two criteria No Fluid Accumulation N/A Reduced Ornamental Plaster Sticker Strength N/A (non-severe) Protein-Calorie Malnutrition N\A #1 Nutrition Diagnosis No nutrition diagnosis at this time Is patient on ventilator? No Is Patient Ambulatory and/or Out of Bed Yes REE-([facility]-ambulatory/OOB) [ [id number] [id number]] Calculation Used for Recommendations [facility] Additional Notes Protein: 1-1.2 g/Kg ABW; 82-98 g/day. Fluids: 1 ml/Kcal, or as per MD. Nutrition Intervention Change Diet Order: Continue Regular Diet as tolerated. Follow-Up By: 12/15/21 Additional Comments Continue monitoring food tolerance, %PO intake of meals , and BM.
--- NOTE | 2021-12-09 18:42 | Progress Note ---
Assessment and Plan - Patient Problems (1) Vascular dementia with behavior disturbance Current Visit: Yes Status: Acute Plan to address problem: For prompting, verbal redirection, benzodiazepine therapy as clinically indicated. (2) Cerebral atherosclerosis Current Visit: Yes Status: Acute Plan to address problem: Risk factor reduction, antiplatelet therapy as clinically indicated (3) Major depression Current Visit: Yes Status: Acute Qualifiers: Psychotic features: with psychotic features Plan to address problem: Continue medical management, behavior change counseling, cognitive behavioral therapy. Supportive care (4) Generalized anxiety disorder Current Visit: Yes Status: Acute Plan to address problem: Benzodiazepine therapy as clinical indicated (5) Advance care planning Current Visit: Yes Status: Acute Plan to address problem: Disease education data, care plan discussed, diagnosis discussed, prognosis discussed, patient is full code, +30 minutes. (6) Preventative health care Current Visit: Yes Status: Acute Plan to address problem: Patient counseled regarding home safety, outpatient follow-up with primary care physician for all age and risk factor appropriate screening test. +30 minutes. History Interval history: 81 YO Female with Vascular Dementia with behavioral disturbance, Cerebral Atherosclerosis, MDD, TAB admitted to [facility] for psychiatric stabilization. Patient seen and evaluated in the recreation room. Patient appears to be at baseline level of cognition and function. No reported nursing events. Hospitalist Physical - Constitutional Vitals: Temp Pulse Resp BP Pulse Ox 97.7 F 74 20 102/49 97 12/09/21 07:14 12/09/21 07:14 12/09/21 07:14 12/09/21 07:14 12/09/21 07:14 General appearance: Present: no acute distress, well-nourished - EENT Eyes: Present: PERRL ENT: hearing decreased - Neck Neck: Present: supple - Respiratory Respiratory effort: labored Respiratory: bilateral: diminished - Cardiovascular Rhythm: regular Heart Sounds: Present: S1 & S2 - Extremities Extremities: no ischemia Peripheral Pulses: within normal limits - Abdominal General gastrointestinal: soft, non-tender, non-distended - Integumentary Integumentary: Present: clear, dry - Psychiatric Psychiatric: cooperative - Neurologic Neurologic: CNII-XII intact Results - Labs Labs: Laboratory Last Values Hemoglobin A1c 6.1 % (4-6) H 12/02/21 11:20 Triglycerides 62 mg/dL (2-149) 12/02/21 11:20 Cholesterol 201 mg/dL (50-199) H 12/02/21 11:20 LDL Cholesterol Direct 112 mg/dL (50-130) 12/02/21 11:20 HDL Cholesterol 82 mg/dL (40-59) H 12/02/21 11:20 Cholesterol/HDL Ratio 2.45 % 12/02/21 11:20 TSH 0.721 mlU/mL (0.270-4.200) 12/02/21 11:20 Hepatitis A IgM Ab Non-reactive (NonReactive) 12/02/21 11:20 Hep Bs Antigen Non-reactive (Negative) 12/02/21 11:20 Hep B Core IgM Ab Non-reactive (NonReactive) 12/02/21 11:20 Hepatitis C Antibody Non-reactive (NonReactive) 12/02/21 11:20 Cobb/IV: Voiding Method Toilet Active Medications - Current Medications Current Medications: Generic Name Dose Route Start Last Admin Trade Name Freq PRN Reason Stop Dose Admin Divalproex Sodium 125 mg 12/05/21 10:00 12/09/21 09:[address] 125 Mg Tab PO 125 mg BID RADHA Administration Lorazepam 0.5 mg 12/02/21 18:11 12/07/21 17:48 Lorazepam 0.5 Mg Tab PO 0.5 mg Q6H PRN Administration Agitation Melatonin 5 mg 12/08/21 16:15 12/08/21 21:02 Melatonin 5 Mg Tab PO 5 mg QHS PRN Administration Sleep Risperidone 0.25 mg 12/03/21 22:00 12/09/21 09:57 Risperidone 0.25 Mg Tab PO 0.25 mg BID RADHA Administration Sertraline HCl 25 mg 12/05/21 12:00 12/09/21 09:57 Sertraline 25 Mg Tab PO 25 mg QDAY RADHA Administration Trazodone HCl 50 mg 12/05/21 22:00 12/08/21 21:02 Trazodone 50 Mg Tab PO 50 mg QHS RADHA Administration Nutrition/Malnutrition Assess - Dietary Evaluation Nutrition/Malnutrition Findings: Nutrition Notes Start: 12/08/21 15:13 Freq: Status: Active Protocol: Document 12/08/21 15:13 LEANNA (Rec: 12/08/21 15:27 LEANNA [id number]) Nutrition Notes Need for Assessment generated from: LOS Initial or Follow up Assessment Other Pertinent Diagnosis Dementia w/Behavioral Disturbance, Anxiety, Depression. Current Diet Regular Diet (since B 12/02). Labs/Tests 12/08: HbA1c 6.1%. Pertinent Medications 12/08: Nutritionally unremarkable. 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 Weight Status Overweight Subjective/Other Information RD consult for LOS assessment. Pt's PO intake of meals has been Good (75-100%) and well tolerated, according to ADL notes. Pt is on Room Air, O2 saturation @ 98%, according to Physical Assessment History notes. Percent of energy/protein needs met: Prescribed Regular Diet provides for energy/protein needs (2,289 Kcal/89 g) during LOS. Burn Absent Trauma Absent GI Symptoms None Food Allergy No Skin Integrity/Comment Assessment WNL. Current % PO Good (75-100%) Minimum of two criteria No Fluid Accumulation N/A Reduced Crisis Manager Strength N/A (non-severe) Protein-Calorie Malnutrition N\A #1 Nutrition Diagnosis No nutrition diagnosis at this time Is patient on ventilator? No Is Patient Ambulatory and/or Out of Bed Yes REE-([facility]-ambulatory/OOB) [ [id number] [id number]] Calculation Used for Recommendations [facility] Additional Notes Protein: 1-1.2 g/Kg ABW; 82-98 g/day. Fluids: 1 ml/Kcal, or as per MD. Nutrition Intervention Change Diet Order: Continue Regular Diet as tolerated. Follow-Up By: 12/15/21 Additional Comments Continue monitoring food tolerance, %PO intake of meals , and BM.
[2021-12-09] MEDS: traZODone 50 MG TAB PO SCH (21:13)
[2021-12-10] MEDS: DIVALPROEX DR 125 MG TAB PO SCH ×2 (10:16→21:06)
[2021-12-10] MEDS: SERTRALINE 25 MG TAB PO SCH (10:16)
[2021-12-10] MEDS: risperiDONE 0.25 MG TAB PO SCH ×2 (10:16→21:06)
--- NOTE | 2021-12-10 12:04 | Progress Note ---
Subjective Date of service: 12/10/21 Principal diagnosis: Dementia w/Behavioral Disturbance Subjective Comment: 12/10:The patient was seen today. She is calm and reports doing well; states sleep and appetite as good. She presents with some forgetfulness. She states mood as good. The patient denies any current suicidal/homicidal ideation and denies hallucinations. 12/09:The patient was seen today. She was sleeping but easily arouses. She says she slept well. The patient says she feels fine. She denies SI/HI or hallucinations. She is awaiting placement. 12/08: The patient was seen today. She is calm and cooperative. She does seem a little irritable today. She denies SI/HI or hallucinations. Staff says the patient continues to and is restless at night 12/06:The patient was seen today. She is pleasant. She denies SI/HI or hallucinations of any time. The patient does have episodes of agitation, according to staff. 12/05 The patient was seen today. She says she is doing fine and denies hallucinations. Staff notes that at times the patient is tearful, agitated and seeking exits 12/04 The patient was seen today. She is sleeping, but easily arouses. She is confused. She says she slept well. She denies SI/HI or hallucinations. 12/03 The patient was seen today. She is calm, cooperative and pleasant. She says she slept good and feels good. She denies SI/HI or hallucinations. Staff says the patient becomes more confused and agitated as the day goes by. She has also been observed responding to internal stimuli and delusional. REVIEW OF SYSTEMS ROS cannot be reliably obtained from the patient due to her confusion and somnolence. Constitutional: Negative for weight loss ENT: Negative for stridor Respiratory: Negative for cough or hemoptysis All other systems reviewed and are negative Diagnoses: Dementia with behavioral disturbances Treatment Plan Patient will be admitted for inpatient psychiatric evaluation, medication adjustment and close monitoring The patient's behavior, mood, sleep and appetite will be closely monitored. Patient will be enrolled in individual and group therapeutic sessions and encouraged to attend. Patient will be provided with a safe and structured environment. Patient's physical health needs will be addressed by the Hospitalist. Hospitalist Consulted Labs including CBC, CMP, Lipid profile and Hemoglobin A1C ordered Social Assessment will be completed and the Airplane Pilot Chief will work with patient and family to ensure a suitable and safe disposition Medication adjustment will be made as clinically indicated Continue Melatonin 5mg po qhs prn insomnia No changes made today Usual Wellness [employer]/Preservation: - Start [place]-3 for brain health, reduce impulsivity, and as adjunctive treatment for mood disorder, continue upon discharge given overall benefits. The patient agreed on the treatment plan, understood the risk, benefit, alternative treatment, potential consequence of no treatment, and gave informed consent. Medications and Allergies Medications and Allergies Allergies Allergy/AdvReac Type Severity Reaction Status Date / Time No Known Allergies Allergy Verified 12/02/21 02:05 Home Medications Medication Instructions Recorded Confirmed Last Taken Type QUEtiapine [SEROquel] 12.5 mg PO DAILY PRN 12/02/21 12/02/21 Unknown History Active Meds: Active Medications Divalproex Sodium (Divalproex Dr 125 Mg Tab) 125 mg PO BID [facility] Last Admin: 12/10/21 10:16 Dose: 125 mg Lorazepam (Lorazepam 0.5 Mg Tab) 0.5 mg PO Q6H PRN PRN Reason: Agitation Last Admin: 12/07/21 17:48 Dose: 0.5 mg Melatonin (Melatonin 5 Mg Tab) 5 mg PO QHS PRN PRN Reason: Sleep Last Admin: 12/08/21 21:02 Dose: 5 mg Risperidone (Risperidone 0.25 Mg Tab) 0.25 mg PO BID [facility] Last Admin: 12/10/21 10:16 Dose: 0.25 mg Sertraline HCl (Sertraline 25 Mg Tab) 25 mg PO QDAY [facility] Last Admin: 12/10/21 10:16 Dose: 25 mg Trazodone HCl (Trazodone 50 Mg Tab) 50 mg PO QHS [facility] Last Admin: 12/09/21 21:13 Dose: 50 mg Results - Results Labs/Vitals: Laboratory Last Values Hemoglobin A1c 6.1 % (4-6) H 12/02/21 11:20 Triglycerides 62 mg/dL (2-149) 12/02/21 11:20 Cholesterol 201 mg/dL (50-199) H 12/02/21 11:20 LDL Cholesterol Direct 112 mg/dL (50-130) 12/02/21 11:20 HDL Cholesterol 82 mg/dL (40-59) H 12/02/21 11:20 Cholesterol/HDL Ratio 2.45 % 12/02/21 11:20 TSH 0.721 mlU/mL (0.270-4.200) 12/02/21 11:20 Hepatitis A IgM Ab Non-reactive (NonReactive) 12/02/21 11:20 Hep Bs Antigen Non-reactive (Negative) 12/02/21 11:20 Hep B Core IgM Ab Non-reactive (NonReactive) 12/02/21 11:20 Hepatitis C Antibody Non-reactive (NonReactive) 12/02/21 11:20 Last Vital Signs Temp 98.1 F 12/09/21 21:05 Pulse 92 H 12/09/21 21:05 Resp 18 12/09/21 21:05 BP 142/93 12/09/21 21:05 Pulse Ox 97 12/09/21 21:05
[2021-12-10] MEDS: traZODone 50 MG TAB PO SCH (21:06)
[2021-12-10] MEDS: MELATONIN 5 MG TAB PO PRN (21:06)
--- NOTE | 2021-12-11 09:31 | Progress Note ---
Subjective Date of service: 12/11/21 Principal diagnosis: Dementia w/Behavioral Disturbance Subjective Comment: 12/11: The patient was seen today. The patient is calm, alert to self;she is forgetful but reports doing well "coming along a lot better." She reports sleep and appetite as good.The patient denies any current suicidal/homicidal ideation and denies hallucinations. 12/10:The patient was seen today. She is calm and reports doing well; states sleep and appetite as good. She presents with some forgetfulness. She states mood as good. The patient denies any current suicidal/homicidal ideation and denies hallucinations. 12/09:The patient was seen today. She was sleeping but easily arouses. She says she slept well. The patient says she feels fine. She denies SI/HI or hallucinations. She is awaiting placement. 12/08: The patient was seen today. She is calm and cooperative. She does seem a little irritable today. She denies SI/HI or hallucinations. Staff says the patient continues to and is restless at night 12/06:The patient was seen today. She is pleasant. She denies SI/HI or hallucinations of any time. The patient does have episodes of agitation, accord ing to staff. 12/05 The patient was seen today. She says she is doing fine and denies hallucinations. Staff notes that at times the patient is tearful, agitated and seeking exits 12/04 The patient was seen today. She is sleeping, but easily arouses. She is confused. She says she slept well. She denies SI/HI or hallucinations. 12/03 The patient was seen today. She is calm, cooperative and pleasant. She says she slept good and feels good. She denies SI/HI or hallucinations. Staff says the patient becomes more confused and agitated as the day goes by. She has also been observed responding to internal stimuli and delusional. REVIEW OF SYSTEMS Constitutional: Negative for weight loss ENT: Negative for stridor Respiratory: Negative for cough or hemoptysis All other systems reviewed and are negative MENTAL STATUS EXAMINATION General Appearance and Behavior: Age appropriate, wearing appropriate clothes, cooperative, polite with questioning, good eye contact Cooperation: cooperative Psychomotor Behavior: Psychomotor normal Mood: good Affect and affective range: congruent with stated affect Thought Process: Goal directed Thought Content: reality oriented Speech: Normal volume, Regular rate and rhythm Suicidal Ideation: Denies Homicidal Ideation: Denies Hallucination: Denies Delusions: None elicited Impulse Control: Limited Insight and Judgment: Limited Memory: decreased Attention: attentive Orientation: Alert and oriented Diagnoses: Dementia with behavioral disturbances Treatment Plan Patient will be admitted for inpatient psychiatric evaluation, medication adjustment and close monitoring The patient's behavior, mood, sleep and appetite will be closely monitored. Patient will be enrolled in individual and group therapeutic sessions and encouraged to attend. Patient will be provided with a safe and structured environment. Patient's physical health needs will be addressed by the Hospitalist. Hospitalist Consulted Labs including CBC, CMP, Lipid profile and Hemoglobin A1C ordered Social Assessment will be completed and the Space Systems Operations Manager will work with patient and family to ensure a suitable and safe disposition Medication adjustment will be made as clinically indicated Continue Melatonin 5mg po qhs prn insomnia No changes made today Usual Wellness Denominational/Preservation: - Start [place]-3 for brain health, reduce impulsivity, and as adjunctive treatment for mood disorder, continue upon discharge given overall benefits. The patient agreed on the treatment plan, understood the risk, benefit, alternative treatment, potential consequence of no treatment, and gave informed consent. Medications and Allergies Medications and Allergies Allergies Allergy/AdvReac Type Severity Reaction Status Date / Time No Known Allergies Allergy Verified 12/02/21 02:05 Home Medications Medication Instructions Recorded Confirmed Last Taken Type QUEtiapine [SEROquel] 12.5 mg PO DAILY PRN 12/02/21 12/02/21 Unknown History Active Meds: Active Medications Divalproex Sodium (Divalproex Dr 125 Mg Tab) 125 mg PO BID [facility] Last Admin: 12/10/21 21:06 Dose: 125 mg Lorazepam (Lorazepam 0.5 Mg Tab) 0.5 mg PO Q6H PRN PRN Reason: Agitation Last Admin: 12/07/21 17:48 Dose: 0.5 mg Melatonin (Melatonin 5 Mg Tab) 5 mg PO QHS PRN PRN Reason: Sleep Last Admin: 12/10/21 21:06 Dose: 5 mg Risperidone (Risperidone 0.25 Mg Tab) 0.25 mg PO BID [facility] Last Admin: 12/10/21 21:06 Dose: 0.25 mg Sertraline HCl (Sertraline 25 Mg Tab) 25 mg PO QDAY [facility] Last Admin: 12/10/21 10:16 Dose: 25 mg Trazodone HCl (Trazodone 50 Mg Tab) 50 mg PO QHS RADHA Last Admin: 12/10/21 21:06 Dose: 50 mg Results - Results Labs/Vitals: Laboratory Last Values Hemoglobin A1c 6.1 % (4-6) H 12/02/21 11:20 Triglycerides 62 mg/dL (2-149) 12/02/21 11:20 Cholesterol 201 mg/dL (50-199) H 12/02/21 11:20 LDL Cholesterol Direct 112 mg/dL (50-130) 12/02/21 11:20 HDL Cholesterol 82 mg/dL (40-59) H 12/02/21 11:20 Cholesterol/HDL Ratio 2.45 % 12/02/21 11:20 TSH 0.721 mlU/mL (0.270-4.200) 12/02/21 11:20 Hepatitis A IgM Ab Non-reactive (NonReactive) 12/02/21 11:20 Hep Bs Antigen Non-reactive (Negative) 12/02/21 11:20 Hep B Core IgM Ab Non-reactive (NonReactive) 12/02/21 11:20 Hepatitis C Antibody Non-reactive (NonReactive) 12/02/21 11:20 Last Vital Signs Temp 98.4 F 12/11/21 07:46 Pulse 75 12/10/21 19:59 Resp 16 12/11/21 07:46 BP 93/47 12/11/21 07:46 Pulse Ox 99 12/10/21 19:59
[2021-12-11] MEDS: SERTRALINE 25 MG TAB PO SCH (09:37)
[2021-12-11] MEDS: risperiDONE 0.25 MG TAB PO SCH ×2 (09:37→21:14)
[2021-12-11] MEDS: DIVALPROEX DR 125 MG TAB PO SCH (09:38)
[2021-12-11] MEDS: DIVALPROEX SPRINKLE 125 MG CAP PO SCH (21:13)
[2021-12-11] MEDS: traZODone 50 MG TAB PO SCH (21:13)
[2021-12-11] MEDS: MELATONIN 5 MG TAB PO PRN (21:14)
--- NOTE | 2021-12-12 09:05 | Progress Note ---
Subjective Date of service: 12/12/21 Principal diagnosis: Dementia w/Behavioral Disturbance Subjective Comment: 12/12:The patient was seen today. She reports doing fine. She reports sleep and appetite as good.The patient denies any current suicidal/homicidal ideation and denies hallucinations. 12/11: The patient was seen today. The patient is calm, alert to self;she is forgetful but reports doing well "coming along a lot better." She reports sleep and appetite as good.The patient denies any current suicidal/homicidal ideation and denies hallucinations. 12/10:The patient was seen today. She is calm and reports doing well; states sleep and appetite as good. She presents with some forgetfulness. She states mood as good. The patient denies any current suicidal/homicidal ideation and denies hallucinations. 12/09:The patient was seen today. She was sleeping but easily arouses. She says she slept well. The patient says she feels fine. She denies SI/HI or hallucinations. She is awaiting placement. 12/08: The patient was seen today. She is calm and cooperative. She does seem a little irritable today. She denies SI/HI or hallucinations. Staff says the patient continues to and is restless at night 12/06:The patient was seen today. She is pleasant. She denies SI/HI or hallucinations of any time. The patient does have episodes of agitation, according to staff. 12/05 The patient was seen today. She says she is doing fine and denies hallucinations. Staff notes that at times the patient is tearful, agitated and seeking exits 12/04 The patient was seen today. She is sleeping, but easily arouses. She is confused. She says she slept well. She denies SI/HI or hallucinations. 12/03 The patient was seen today. She is calm, cooperative and pleasant. She says she slept good and feels good. She denies SI/HI or hallucinations. Staff says the patient becomes more confused and agitated as the day goes by. She has also been observed responding to internal stimuli and delusional. REVIEW OF SYSTEMS Constitutional: Negative for weight loss ENT: Negative for stridor Respiratory: Negative for cough or hemoptysis All other systems reviewed and are negative MENTAL STATUS EXAMINATION General Appearance and Behavior: Age appropriate, wearing appropriate clothes, cooperative, polite with questioning, good eye contact Cooperation: cooperative Psychomotor Behavior: Psychomotor normal Mood: Fine Affect and affective range: congruent with stated affect Thought Process: Goal directed Thought Content: reality oriented Speech: Normal volume, Regular rate and rhythm Suicidal Ideation: Denies Homicidal Ideation: Denies Hallucination: Denies Delusions: None elicited Impulse Control: Limited Insight and Judgment: Limited Memory: forgetful Attention: attentive Orientation: Alert and oriented Diagnoses: Dementia with behavioral disturbances Treatment Plan Patient will be admitted for inpatient psychiatric evaluation, medication adjustment and close monitoring The patient's behavior, mood, sleep and appetite will be closely monitored. Patient will be enrolled in individual and group therapeutic sessions and encouraged to attend. Patient will be provided with a safe and structured environment. Patient's physical health needs will be addressed by the Hospitalist. Hospitalist Consulted Labs including CBC, CMP, Lipid profile and Hemoglobin A1C ordered Social Assessment will be completed and the Resin Coater will work with patient and family to ensure a suitable and safe disposition Medication adjustment will be made as clinically indicated Continue Melatonin 5mg po qhs prn insomnia No changes made today Usual Wellness [employer]/Preservation: - Start [place]-3 for brain health, reduce impulsivity, and as adjunctive treatment for mood disorder, continue upon discharge given overall benefits. The patient agreed on the treatment plan, understood the risk, benefit, alternative treatment, potential consequence of no treatment, and gave informed consent. Medications and Allergie Medications and Allergies Allergies Allergy/AdvReac Type Severity Reaction Status Date / Time No Known Allergies Allergy Verified 12/02/21 02:05 Home Medications Medication Instructions Recorded Confirmed Last Taken Type QUEtiapine [SEROquel] 12.5 mg PO DAILY PRN 12/02/21 12/02/21 Unknown History Active Meds: Active Medications Divalproex Sodium (Divalproex Sprinkle 125 Mg Cap) 125 mg PO BID RADHA Last Admin: 12/11/21 21:13 Dose: 125 mg Lorazepam (Lorazepam 0.5 Mg Tab) 0.5 mg PO Q6H PRN PRN Reason: Agitation Last Admin: 12/07/21 17:48 Dose: 0.5 mg Melatonin (Melatonin 5 Mg Tab) 5 mg PO QHS PRN PRN Reason: Sleep Last Admin: 12/11/21 21:14 Dose: 5 mg Risperidone (Risperidone 0.25 Mg Tab) 0.25 mg PO BID RADHA Last Admin: 12/11/21 21:14 Dose: 0.25 mg Sertraline HCl (Sertraline 25 Mg Tab) 25 mg PO QDAY [facility] Last Admin: 12/11/21 09:37 Dose: 25 mg Trazodone HCl (Trazodone 50 Mg Tab) 50 mg PO QHS [facility] Last Admin: 12/11/21 21:13 Dose: 50 mg Results - Results Labs/Vitals: Laboratory Last Values Hemoglobin A1c 6.1 % (4-6) H 12/02/21 11:20 Triglycerides 62 mg/dL (2-149) 12/02/21 11:20 Cholesterol 201 mg/dL (50-199) H 12/02/21 11:20 LDL Cholesterol Direct 112 mg/dL (50-130) 12/02/21 11:20 HDL Cholesterol 82 mg/dL (40-59) H 12/02/21 11:20 Cholesterol/HDL Ratio 2.45 % 12/02/21 11:20 TSH 0.721 mlU/mL (0.270-4.200) 12/02/21 11:20 Hepatitis A IgM Ab Non-reactive (NonReactive) 12/02/21 11:20 Hep Bs Antigen Non-reactive (Negative) 12/02/21 11:20 Hep B Core IgM Ab Non-reactive (NonReactive) 12/02/21 11:20 Hepatitis C Antibody Non-reactive (NonReactive) 12/02/21 11:20 Last Vital Signs Temp 98.7 F 12/11/21 20:26 Pulse 76 12/12/21 08:00 Resp 16 12/12/21 08:00 BP 97/52 12/12/21 08:00 Pulse Ox 96 12/12/21 08:00
[2021-12-12] MEDS: SERTRALINE 25 MG TAB PO SCH (09:25)
[2021-12-12] MEDS: risperiDONE 0.25 MG TAB PO SCH ×2 (09:25→21:41)
[2021-12-12] MEDS: DIVALPROEX SPRINKLE 125 MG CAP PO SCH ×2 (09:26→21:41)
--- NOTE | 2021-12-12 14:24 | Progress Note ---
Assessment and Plan - Patient Problems (1) Vascular dementia with behavior disturbance Current Visit: Yes Status: Acute Plan to address problem: For prompting, verbal redirection, benzodiazepine therapy as clinically indicated. (2) Cerebral atherosclerosis Current Visit: Yes Status: Acute Plan to address problem: Risk factor reduction, antiplatelet therapy as clinically indicated (3) Major depression Current Visit: Yes Status: Acute Qualifiers: Psychotic features: with psychotic features Plan to address problem: Continue medical management, behavior change counseling, cognitive behavioral therapy. Supportive care (4) Generalized anxiety disorder Current Visit: Yes Status: Acute Plan to address problem: Benzodiazepine therapy as clinical indicated (5) Advance care planning Current Visit: Yes Status: Acute Plan to address problem: Disease education data, care plan discussed, diagnosis discussed, prognosis discussed, patient is full code, +30 minutes. (6) Preventative health care Current Visit: Yes Status: Acute Plan to address problem: Patient counseled regarding home safety, outpatient follow-up with primary care physician for all age and risk factor appropriate screening test. +30 minutes. History Interval history: 81 YO Female with Vascular Dementia with behavioral disturbance, Cerebral Atherosclerosis, MDD, TAB admitted [facility] for psychiatric stabilization. Patient seen and evaluated in the recreation room. Patient appears to be at baseline level of cognition and function. No reported nursing events. Hospitalist Physical - Constitutional Vitals: Temp Pulse Resp BP Pulse Ox 98.7 F 76 16 97/52 96 12/11/21 20:26 12/12/21 08:00 12/12/21 08:00 12/12/21 08:00 12/12/21 08:00 General appearance: Present: no acute distress, well-nourished - EENT Eyes: Present: PERRL ENT: hearing decreased - Neck Neck: Present: supple - Respiratory Respiratory effort: labored Respiratory: bilateral: diminished - Cardiovascular Rhythm: regular Heart Sounds: Present: S1 & S2 - Extremities Extremities: no ischemia Peripheral Pulses: within normal limits - Abdominal General gastrointestinal: soft, non-tender, non-distended - Integumentary Integumentary: Present: clear, dry - Psychiatric Psychiatric: cooperative - Neurologic Neurologic: CNII-XII intact Results - Labs Labs: Laboratory Last Values Hemoglobin A1c 6.1 % (4-6) H 12/02/21 11:20 Triglycerides 62 mg/dL (2-149) 12/02/21 11:20 Cholesterol 201 mg/dL (50-199) H 12/02/21 11:20 LDL Cholesterol Direct 112 mg/dL (50-130) 12/02/21 11:20 HDL Cholesterol 82 mg/dL (40-59) H 12/02/21 11:20 Cholesterol/HDL Ratio 2.45 % 12/02/21 11:20 TSH 0.721 mlU/mL (0.270-4.200) 12/02/21 11:20 Hepatitis A IgM Ab Non-reactive (NonReactive) 12/02/21 11:20 Hep Bs Antigen Non-reactive (Negative) 12/02/21 11:20 Hep B Core IgM Ab Non-reactive (NonReactive) 12/02/21 11:20 Hepatitis C Antibody Non-reactive (NonReactive) 12/02/21 11:20 [place]/IV: Voiding Method Diaper Active Medications - Current Medications Current Medications: Generic Name Dose Route Start Last Admin Trade Name Freq PRN Reason Stop Dose Admin Divalproex Sodium 125 mg 12/11/21 22:00 12/12/21 09:26 Divalproex Sprinkle 125 Mg Cap PO 125 mg BID RADHA Administration Lorazepam 0.5 mg 12/02/21 18:11 12/07/21 17:48 Lorazepam 0.5 Mg Tab PO 0.5 mg Q6H PRN Administration Agitation Melatonin 5 mg 12/08/21 16:15 12/11/21 21:14 Melatonin 5 Mg Tab PO 5 mg QHS PRN Administration Sleep Risperidone 0.25 mg 12/03/21 22:00 12/12/21 09:25 Risperidone 0.25 Mg Tab PO 0.25 mg BID RADHA Administration Sertraline HCl 25 mg 12/05/21 12:00 12/12/21 09:25 Sertraline 25 Mg Tab PO 25 mg QDAY RADHA Administration Trazodone HCl 50 mg 12/05/21 22:00 12/11/21 21:13 Trazodone 50 Mg Tab PO 50 mg QHS RADHA Administration Nutrition/Malnutrition Assess - Dietary Evaluation Nutrition/Malnutrition Findings: Nutrition Notes Start: 12/08/21 15:13 Freq: Status: Active Protocol: Document 12/08/21 15:13 LEANNA (Rec: 12/08/21 15:27 LEANNA [id number]) Nutrition Notes Need for Assessment generated from: LOS Initial or Follow up Assessment Other Pertinent Diagnosis Dementia w/Behavioral Disturbance, Anxiety, Depression. Current Diet Regular Diet (since B 12/02). Labs/Tests 12/08: HbA1c 6.1%. Pertinent Medications 12/08: Nutritionally unremarkable. 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 Weight Status Overweight Subjective/Other Information RD consult for LOS assessment. Pt's PO intake of meals has been Good (75-100%) and well tolerated, according to ADL notes. Pt is on Room Air, O2 saturation @ 98%, according to Physical Assessment History notes. Percent of energy/protein needs met: Prescribed Regular Diet provides for energy/protein needs (2,289 Kcal/89 g) during LOS. Burn Absent Trauma Absent GI Symptoms None Food Allergy No Skin Integrity/Comment Assessment WNL. 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 No Is Patient Ambulatory and/or Out of Bed Yes REE-([facility]-ambulatory/OOB) [ 1721.239 [id number]] Calculation Used for Recommendations [facility] Additional Notes Protein: 1-1.2 g/Kg ABW; 82-98 g/day. Fluids: 1 ml/Kcal, or as per MD. Nutrition Intervention Change Diet Order: Continue Regular Diet as tolerated. Follow-Up By: 12/15/21 Additional Comments Continue monitoring food tolerance, %PO intake of meals , and BM.
[2021-12-12] MEDS: traZODone 50 MG TAB PO SCH (21:41)
--- NOTE | 2021-12-13 09:48 | Progress Note ---
Subjective Date of service: 12/13/21 Principal diagnosis: Dementia w/Behavioral Disturbance Subjective Comment: 12/13:The patient was seen today. She states she is doing well and mood is good. She reports sleep and appetite as good.The patient denies any current suicidal/homicidal ideation and denies hallucinations. Per nurse, "Pt was restless, agitated, pacing, and insisting on going "home tonight." Resistive to taking her bedtime medications, but accepted them with a lot of persuasion. Pt rested 7.5 hours overnight." 12/12:The patient was seen today. She reports doing fine. She reports sleep and appetite as good.The patient denies any current suicidal/homicidal ideation and denies hallucinations. 12/11: The patient was seen today. The patient is calm, alert to self;she is forgetful but reports doing well "coming along a lot better." She reports sleep and appetite as good.The patient denies any current suicidal/homicidal ideation and denies hallucinations. 12/10:The patient was seen today. She is calm and reports doing well; states sleep and appetite as good. She presents with some forgetfulness. She states mood as good. The patient denies any current suicidal/homicidal ideation and denies hallucinations. 12/09:The patient was seen today. She was sleeping but easily arouses. She says she slept well. The patient says she feels fine. She denies SI/HI or hallucinations. She is awaiting placement. 12/08: The patient was seen today. She is calm and cooperative. She does seem a little irritable today. She denies SI/HI or hallucinations. Staff says the patient continues to and is restless at night 12/06:The patient was seen today. She is pleasant. She denies SI/HI or hallucinations of any time. The patient does have episodes of agitation, according to staff. 12/05 The patient was seen today. She says she is doing fine and denies hallucinations. Staff notes that at times the patient is tearful, agitated and seeking exits 12/04 The patient was seen today. She is sleeping, but easily arouses. She is confused. She says she slept well. She denies SI/HI or hallucinations. 12/03 The patient was seen today. She is calm, cooperative and pleasant. She says she slept good and feels good. She denies SI/HI or hallucinations. Staff says the patient becomes more confused and agitated as the day goes by. She has also been observed responding to internal stimuli and delusional. REVIEW OF SYSTEMS Constitutional: Negative for weight loss ENT: Negative for stridor Respiratory: Negative for cough or hemoptysis All other systems reviewed and are negative MENTAL STATUS EXAMINATION General Appearance and Behavior: Age appropriate, wearing appropriate clothes, cooperative, polite with questioning, good eye contact Cooperation: cooperative Psychomotor Behavior: Psychomotor normal Mood:ok Affect and affective range: congruent with stated affect Thought Process: Goal directed Thought Content: reality oriented Speech: Normal volume, Regular rate and rhythm Suicidal Ideation: Denies Homicidal Ideation: Denies Hallucination: Denies Delusions: None elicited Impulse Control: Limited Insight and Judgment: Limited Memory: forgetful Attention: attentive Orientation: Alert and oriented Diagnoses: Dementia with behavioral disturbances Treatment Plan Patient will be admitted for inpatient psychiatric evaluation, medication adjustment and close monitoring The patient's behavior, mood, sleep and appetite will be closely monitored. Patient will be enrolled in individual and group therapeutic sessions and encouraged to attend. Patient will be provided with a safe and structured environment. Patient's physical health needs will be addressed by the Hospitalist. Hospitalist Consulted Labs including CBC, CMP, Lipid profile and Hemoglobin A1C ordered Social Assessment will be completed and the Absorption And Adsorption Engineer will work with patient and family to ensure a suitable and safe disposition Medication adjustment will be made as clinically indicated Continue Melatonin 5mg po qhs prn insomnia No changes made today Usual Wellness [employer]ism/Preservation: - Start [place]-3 for brain health, reduce impulsivity, and as adjunctive treatment for mood disorder, continue upon discharge given overall benefits. The patient agreed on the treatment plan, understood the risk, benefit, alternative treatment, potential consequence of no treatment, and gave informed consent. Medications and Allergie Medications and Allergies Allergies Allergy/AdvReac Type Severity Reaction Status Date / Time No Known Allergies Allergy Verified 12/02/21 02:05 Home Medications Medication Instructions Recorded Confirmed Last Taken Type QUEtiapine [SEROquel] 12.5 mg PO DAILY PRN 12/02/21 12/02/21 Unknown History Active Meds: Active Medications Divalproex Sodium (Divalproex Sprinkle 125 Mg Cap) 125 mg PO BID RADHA Last Admin: 12/12/21 21:41 Dose: 125 mg Lorazepam (Lorazepam 0.5 Mg Tab) 0.5 mg PO Q6H PRN PRN Reason: Agitation Last Admin: 12/07/21 17:48 Dose: 0.5 mg Melatonin (Melatonin 5 Mg Tab) 5 mg PO QHS PRN PRN Reason: Sleep Last Admin: 12/11/21 21:14 Dose: 5 mg Risperidone (Risperidone 0.25 Mg Tab) 0.25 mg PO BID [facility] Last Admin: 12/12/21 21:41 Dose: 0.25 mg Sertraline HCl (Sertraline 25 Mg Tab) 25 mg PO QDAY [facility] Last Admin: 12/12/21 09:25 Dose: 25 mg Trazodone HCl (Trazodone 50 Mg Tab) 50 mg PO QHS [facility] Last Admin: 12/12/21 21:41 Dose: 50 mg Results - Results Labs/Vitals: Laboratory Last Values Hemoglobin A1c 6.1 % (4-6) H 12/02/21 11:20 Triglycerides 62 mg/dL (2-149) 12/02/21 11:20 Cholesterol 201 mg/dL (50-199) H 12/02/21 11:20 LDL Cholesterol Direct 112 mg/dL (50-130) 12/02/21 11:20 HDL Cholesterol 82 mg/dL (40-59) H 12/02/21 11:20 Cholesterol/HDL Ratio 2.45 % 12/02/21 11:20 TSH 0.721 mlU/mL (0.270-4.200) 12/02/21 11:20 Hepatitis A IgM Ab Non-reactive (NonReactive) 12/02/21 11:20 Hep Bs Antigen Non-reactive (Negative) 12/02/21 11:20 Hep B Core IgM Ab Non-reactive (NonReactive) 12/02/21 11:20 Hepatitis C Antibody Non-reactive (NonReactive) 12/02/21 11:20 Last Vital Signs Temp 98.7 F 12/11/21 20:26 Pulse 76 12/12/21 08:00 Resp 16 12/12/21 08:00 BP 97/52 12/12/21 08:00 Pulse Ox 96 12/12/21 08:00
[2021-12-13] MEDS: SERTRALINE 25 MG TAB PO SCH (09:58)
[2021-12-13] MEDS: risperiDONE 0.25 MG TAB PO SCH ×2 (09:58→21:06)
[2021-12-13] MEDS: DIVALPROEX SPRINKLE 125 MG CAP PO SCH ×2 (10:57→21:06)
[2021-12-13] MEDS: LORazepam 0.5 MG TAB PO PRN (13:42)
--- NOTE | 2021-12-13 19:49 | Progress Note ---
Assessment and Plan Assessment and Plan - Patient Problems (1) Vascular dementia with behavior disturbance Current Visit: Yes Status: Acute Plan to address problem: For prompting, verbal redirection, benzodiazepine therapy as clinically indicated. (2) Cerebral atherosclerosis Current Visit: Yes Status: Acute Plan to address problem: Risk factor reduction, antiplatelet therapy as clinically indicated (3) Major depression Current Visit: Yes Status: Acute Qualifiers: Psychotic features: with psychotic features Plan to address problem: Continue medical management, behavior change counseling, cognitive behavioral therapy. Supportive care (4) Generalized anxiety disorder Current Visit: Yes Status: Acute Plan to address problem: Benzodiazepine therapy as clinical indicated (5) Advance care planning Current Visit: Yes Status: Acute Plan to address problem: Disease education data, care plan discussed, diagnosis discussed, prognosis discussed, patient is full code, +30 minutes. (6) Preventative health care Current Visit: Yes Status: Acute Plan to address problem: Patient counseled regarding home safety, outpatient follow-up with primary care physician for all age and risk factor appropriate screening test. +30 minutes. Subjective Date of service: 12/13/21 Principal diagnosis: Dementia w/Behavioral Disturbance Interval history: History Interval history: 81 YO Female with Vascular Dementia with behavioral disturbance, Cerebral Atherosclerosis, MDD, TAB admitted [facility] for psychiatric stabilization. Patient seen and evaluated in the recreation room. Patient appears to be at baseline level of cognition and function. No reported nursing events. Objective - Constitutional General appearance: Present: no acute distress, well-nourished - EENT Eyes: PERRL, EOM intact ENT: hearing intact, clear oral mucosa Ears: bilateral: normal - Neck Neck: supple, normal ROM - Respiratory Respiratory effort: normal Respiratory: bilateral: CTA - Breasts Breasts: normal - Cardiovascular Heart rate: 78 Rhythm: regular Heart Sounds: Present: S1 & S2. Absent: gallop, rub Extremities: pulses intact, No edema, normal color, Full ROM - Gastrointestinal General gastrointestinal: Present: soft, non-tender, non-distended, normal bowel sounds - Genitourinary Female genitourinary: normal - Integumentary Integumentary: clear, warm, dry - Musculoskeletal Musculoskeletal: 1, strength equal bilaterally - Neurologic Neurologic: moves all extremities - Psychiatric Psychiatric: memory intact, appropriate mood/affect, intact judgment & insight
[2021-12-13] MEDS: traZODone 50 MG TAB PO SCH (21:06)
[2021-12-13] MEDS: MELATONIN 5 MG TAB PO PRN (21:06)
[2021-12-14] MEDS: risperiDONE 0.25 MG TAB PO SCH ×2 (09:28→21:39)
[2021-12-14] MEDS: DIVALPROEX SPRINKLE 125 MG CAP PO SCH ×2 (09:28→21:39)
[2021-12-14] MEDS: SERTRALINE 25 MG TAB PO SCH (09:28)
--- NOTE | 2021-12-14 09:34 | Progress Note ---
Subjective Date of service: 12/14/21 Principal diagnosis: Dementia w/Behavioral Disturbance Subjective Comment: 12/14: The patient was seen today.She states she is doing well " I'm thankful to the lord to see another day. She continues to be forgetful and confused. The patient denies any current suicidal/homicidal ideation and denies hallucinations. 12/13:The patient was seen today. She states she is doing well and mood is good. She reports sleep and appetite as good.The patient denies any current suicidal/homicidal ideation and denies hallucinations. Per nurse, "Pt was restless, agitated, pacing, and insisting on going "home tonight." Resistive to taking her bedtime medications, but accepted them with a lot of persuasion. Pt rested 7.5 hours overnight." 12/12:The patient was seen today. She reports doing fine. She reports sleep and appetite as good.The patient denies any current suicidal/homicidal ideation and denies hallucinations. 12/11: The patient was seen today. The patient is calm, alert to self;she is forgetful but reports doing well "coming along a lot better." She reports sleep and appetite as good.The patient denies any current suicidal/homicidal ideation and denies hallucinations. 12/10:The patient was seen today. She is calm and reports doing well; states sleep and appetite as good. She presents with some forgetfulness. She states mood as good. The patient denies any current suicidal/homicidal ideation and denies hallucinations. 12/09:The patient was seen today. She was sleeping but easily arouses. She says she slept well. The patient says she feels fine. She denies SI/HI or hallucinations. She is awaiting placement. 12/08: The patient was seen today. She is calm and cooperative. She does seem a little irritable today. She denies SI/HI or hallucinations. Staff says the patient continues to [place] and is restless at night 12/06:The patient was seen today. She is pleasant. She denies SI/HI or hallucinations of any time. The patient does have episodes of agitation, according to staff. 12/05 The patient was seen today. She says she is doing fine and denies hallucinations. Staff notes that at times the patient is tearful, agitated and seeking exits 12/04 The patient was seen today. She is sleeping, but easily arouses. She is confused. She says she slept well. She denies SI/HI or hallucinations. 12/03 The patient was seen today. She is calm, cooperative and pleasant. She s ays she slept good and feels good. She denies SI/HI or hallucinations. Staff says the patient becomes more confused and agitated as the day goes by. She has also been observed responding to internal stimuli and delusional. REVIEW OF SYSTEMS Constitutional: Negative for weight loss ENT: Negative for stridor Respiratory: Negative for cough or hemoptysis All other systems reviewed and are negative MENTAL STATUS EXAMINATION General Appearance and Behavior: Age appropriate, wearing appropriate clothes, cooperative, polite with questioning, good eye contact Cooperation: cooperative Psychomotor Behavior: Psychomotor normal Mood:ok Affect and affective range: congruent with stated affect Thought Process: Goal directed Thought Content: reality oriented Speech: Normal volume, Regular rate and rhythm Suicidal Ideation: Denies Homicidal Ideation: Denies Hallucination: Denies Delusions: None elicited Impulse Control: Limited Insight and Judgment: Limited Memory: forgetful Attention: attentive Orientation: Alert and oriented Diagnoses: Dementia with behavioral disturbances Treatment Plan Patient will be admitted for inpatient psychiatric evaluation, medication adjustment and close monitoring The patient's behavior, mood, sleep and appetite will be closely monitored. Patient will be enrolled in individual and group therapeutic sessions and encouraged to attend. Patient will be provided with a safe and structured environment. Patient's physical health needs will be addressed by the Hospitalist. Hospitalist Consulted Labs including CBC, CMP, Lipid profile and Hemoglobin A1C ordered Social Assessment will be completed and the Pipeline Executive will work with patient and family to ensure a suitable and safe disposition Medication adjustment will be made as clinically indicated Continue Melatonin 5mg po qhs prn insomnia No changes made today Usual Wellness Religion/Preservation: - Start [place]-3 for brain health, reduce impulsivity, and as adjunctive treatment for mood disorder, continue upon discharge given overall benefits. The patient agreed on the treatment plan, understood the risk, benefit, alternative treatment, potential consequence of no treatment, and gave informed consent. Medications and Allergie Medications and Allergies Allergies Allergy/AdvReac Type Severity Reaction Status Date / Time No Known Allergies Allergy Verified 12/02/21 02:05 Home Medications Medication Instructions Recorded Confirmed Last Taken Type QUEtiapine [SEROquel] 12.5 mg PO DAILY PRN 12/02/21 12/02/21 Unknown History Active Meds: Active Medications Divalproex Sodium (Divalproex Sprinkle 125 Mg Cap) 125 mg PO BID [facility] Last Admin: 12/14/21 09:28 Dose: 125 mg Lorazepam (Lorazepam 0.5 Mg Tab) 0.5 mg PO Q6H PRN PRN Reason: Agitation Last Admin: 12/13/21 13:42 Dose: 0.5 mg Melatonin (Melatonin 5 Mg Tab) 5 mg PO QHS PRN PRN Reason: Sleep Last Admin: 12/13/21 21:06 Dose: 5 mg Risperidone (Risperidone 0.25 Mg Tab) 0.25 mg PO BID [facility] Last Admin: 12/14/21 09:28 Dose: 0.25 mg Sertraline HCl (Sertraline 25 Mg Tab) 25 mg PO QDAY [facility] Last Admin: 12/14/21 09:28 Dose: 25 mg Trazodone HCl (Trazodone 50 Mg Tab) 50 mg PO QHS [facility] Last Admin: 12/13/21 21:06 Dose: 50 mg Results - Results Labs/Vitals: Laboratory Last Values Hemoglobin A1c 6.1 % (4-6) H 12/02/21 11:20 Triglycerides 62 mg/dL (2-149) 12/02/21 11:20 Cholesterol 201 mg/dL (50-199) H 12/02/21 11:20 LDL Cholesterol Direct 112 mg/dL (50-130) 12/02/21 11:20 HDL Cholesterol 82 mg/dL (40-59) H 12/02/21 11:20 Cholesterol/HDL Ratio 2.45 % 12/02/21 11:20 TSH 0.721 mlU/mL (0.270-4.200) 12/02/21 11:20 Hepatitis A IgM Ab Non-reactive (NonReactive) 12/02/21 11:20 Hep Bs Antigen Non-reactive (Negative) 12/02/21 11:20 Hep B Core IgM Ab Non-reactive (NonReactive) 12/02/21 11:20 Hepatitis C Antibody Non-reactive (NonReactive) 12/02/21 11:20 Last Vital Signs Temp 98.4 F 12/13/21 20:27 Pulse 73 12/13/21 20:27 Resp 18 12/13/21 20:27 BP 123/54 12/13/21 20:27 Pulse Ox 100 12/13/21 20:27
[2021-12-14] MEDS: hydrOXYzine PAMOATE 25 MG CAP PO SCH (12:48)
[2021-12-14] MEDS: traZODone 50 MG TAB PO SCH (21:38)
--- NOTE | 2021-12-15 07:44 | Progress Note ---
Assessment and Plan Assessment and Plan - Patient Problems (1) Vascular dementia with behavior disturbance Current Visit: Yes Status: Acute Plan to address problem: For prompting, verbal redirection, benzodiazepine therapy as clinically indicated. (2) Cerebral atherosclerosis Current Visit: Yes Status: Acute Plan to address problem: Risk factor reduction, antiplatelet therapy as clinically indicated (3) Major depression Current Visit: Yes Status: Acute Qualifiers: Psychotic features: with psychotic features Plan to address problem: Continue medical management, behavior change counseling, cognitive behavioral therapy. Supportive care (4) Generalized anxiety disorder Current Visit: Yes Status: Acute Plan to address problem: Benzodiazepine therapy as clinical indicated (5) Advance care planning Current Visit: Yes Status: Acute Plan to address problem: Disease education data, care plan discussed, diagnosis discussed, prognosis discussed, patient is full code, +30 minutes. (6) Preventative health care Current Visit: Yes Status: Acute Plan to address problem: Patient counseled regarding home safety, outpatient follow-up with primary care physician for all age and risk factor appropriate screening test. +30 minutes. Subjective Date of service: 12/14/21 Principal diagnosis: Dementia w/Behavioral Disturbance Interval history: History Interval history: 81 YO Female with Vascular Dementia with behavioral disturbance, Cerebral Atherosclerosis, MDD, TAB admitted [facility] for psychiatric stabilization. Patient seen and evaluated in the recreation room. Patient appears to be at baseline level of cognition and function. No reported nursing events. Objective - Constitutional Vitals: Vital Signs - 12hr 12/14/21 19:48 Temperature 98.3 F Pulse Rate 88 Respiratory 18 Rate Blood Pressure 127/51 O2 Sat by Pulse 100 Oximetry General appearance: Present: no acute distress, well-nourished - EENT Eyes: PERRL, EOM intact ENT: hearing intact, clear oral mucosa Ears: bilateral: normal - Neck Neck: supple, normal ROM - Respiratory Respiratory effort: normal Respiratory: bilateral: CTA - Breasts Breasts: normal - Cardiovascular Heart rate: 78 Rhythm: regular Heart Sounds: Present: S1 & S2. Absent: gallop, rub Extremities: pulses intact, No edema, normal color, Full ROM - Gastrointestinal General gastrointestinal: Present: soft, non-tender, non-distended, normal bowel sounds - Genitourinary Female genitourinary: normal - Integumentary Integumentary: clear, warm, dry - Musculoskeletal Musculoskeletal: 1, strength equal bilaterally - Neurologic Neurologic: moves all extremities - Psychiatric Psychiatric: memory intact, appropriate mood/affect, intact judgment & insight
[2021-12-15] MEDS: DIVALPROEX SPRINKLE 125 MG CAP PO SCH ×2 (09:04→21:13)
[2021-12-15] MEDS: hydrOXYzine PAMOATE 25 MG CAP PO SCH (09:04)
[2021-12-15] MEDS: SERTRALINE 25 MG TAB PO SCH (09:04)
[2021-12-15] MEDS: risperiDONE 0.25 MG TAB PO SCH ×2 (09:04→21:12)
--- NOTE | 2021-12-15 09:32 | Progress Note ---
Subjective Date of service: 12/15/21 Principal diagnosis: Dementia w/Behavioral Disturbance Subjective Comment: 12/15:The patient was seen today.Alert and oriented x2. She reports mood as good. She reports sleep and appetite as good.The patient denies any current suicidal/homicidal ideation and denies hallucinations. Awaiting placement. 12/14: The patient was seen today.She states she is doing well " I'm thankful to the lord to see another day. She continues to be forgetful and confused. The patient denies any current suicidal/homicidal ideation and denies hallucinations. 12/13:The patient was seen today. She states she is doing well and mood is good. She reports sleep and appetite as good.The patient denies any current suicidal/homicidal ideation and denies hallucinations. Per nurse, "Pt was restless, agitated, pacing, and insisting on going "home tonight." Resistive to taking her bedtime medications, but accepted them with a lot of persuasion. Pt rested 7.5 hours overnight." 12/12:The patient was seen today. She reports doing fine. She reports sleep and appetite as good.The patient denies any current suicidal/homicidal ideation and denies hallucinations. 12/11: The patient was seen today. The patient is calm, alert to self;she is forgetful but reports doing well "coming along a lot better." She reports sleep and appetite as good.The patient denies any current suicidal/homicidal ideation and denies hallucinations. 12/10:The patient was seen today. She is calm and reports doing well; states sleep and appetite as good. She presents with some forgetfulness. She states mood as good. The patient denies any current suicidal/homicidal ideation and denies hallucinations. 12/09:The patient was seen today. She was sleeping but easily arouses. She says she slept well. The patient says she feels fine. She denies SI/HI or hallucinations. She is awaiting placement. 12/08: The patient was seen today. She is calm and cooperative. She does seem a little irritable today. She denies SI/HI or hallucinations. Staff says the patient continues to [place] and is restless at night 12/06:The patient was seen today. She is pleasant. She denies SI/HI or hallucinations of any time. The patient does have episodes of agitation, according to staff. 12/05 The patient was seen today. She says she is doing fine and denies hallucinations. Staff notes that at times the patient is tearful, agitated and seeking exits 12/04 The patient was seen today. She is sleeping, but easily arouses. She is confused. She says she slept well. She denies SI/HI or hallucinations. 12/03 The patient was seen today. She is calm, cooperative and pleasant. She says she slept good and feels good. She denies SI/HI or hallucinations. Staff says the patient becomes more confused and agitated as the day goes by. She has also been observed responding to internal stimuli and delusional. REVIEW OF SYSTEMS Constitutional: Negative for weight loss ENT: Negative for stridor Respiratory: Negative for cough or hemoptysis All other systems reviewed and are negative MENTAL STATUS EXAMINATION General Appearance and Behavior: Age appropriate, wearing appropriate clothes, cooperative, polite with questioning, good eye contact Cooperation: cooperative Psychomotor Behavior: Psychomotor normal Mood:good Affect and affective range: congruent with stated affect Thought Process: Goal directed Thought Content: reality oriented Speech: Normal volume, Regular rate and rhythm Suicidal Ideation: Denies Homicidal Ideation: Denies Hallucination: Denies Delusions: None elicited Impulse Control: Limited Insight and Judgment: Limited Memory: forgetful Attention: attentive Orientation: Alert and oriented Diagnoses: Dementia with behavioral disturbances Treatment Plan Patient will be admitted for inpatient psychiatric evaluation, medication adjustment and close monitoring The patient's behavior, mood, sleep and appetite will be closely monitored. Patient will be enrolled in individual and group therapeutic sessions and encouraged to attend. Patient will be provided with a safe and structured environment. Patient's physical health needs will be addressed by the Hospitalist. Hospitalist Consulted Labs including CBC, CMP, Lipid profile and Hemoglobin A1C ordered Social Assessment will be completed and the Supervisor Order Takers will work with patient and family to ensure a suitable and safe disposition Medication adjustment will be made as clinically indicated Continue Melatonin 5mg po qhs prn insomnia No changes made today Usual Wellness Anab[employer]ist/Preservation: - Start [place]-3 for brain health, reduce impulsivity, and as adjunctive treatment for mood disorder, continue upon discharge given overall benefits. The patient agreed on the treatment plan, understood the risk, benefit, altern ative treatment, potential consequence of no treatment, and gave informed consent. Medications and Allergie Medications and Allergies Allergies Allergy/AdvReac Type Severity Reaction Status Date / Time No Known Allergies Allergy Verified 12/02/21 02:05 Home Medications Medication Instructions Recorded Confirmed Last Taken Type QUEtiapine [SEROquel] 12.5 mg PO DAILY PRN 12/02/21 12/02/21 Unknown History Active Meds: Active Medications Divalproex Sodium (Divalproex Sprinkle 125 Mg Cap) 125 mg PO BID [facility] Last Admin: 12/15/21 09:04 Dose: 125 mg Hydroxyzine Pamoate (Hydroxyzine Pamoate 25 Mg Cap) 25 mg PO DAILY [facility] Last Admin: 12/15/21 09:04 Dose: 25 mg Lorazepam (Lorazepam 0.5 Mg Tab) 0.5 mg PO Q6H PRN PRN Reason: Agitation Last Admin: 12/13/21 13:42 Dose: 0.5 mg Melatonin (Melatonin 5 Mg Tab) 5 mg PO QHS PRN PRN Reason: Sleep Last Admin: 12/13/21 21:06 Dose: 5 mg Risperidone (Risperidone 0.25 Mg Tab) 0.25 mg PO BID [facility] Last Admin: 12/15/21 09:04 Dose: 0.25 mg Sertraline HCl (Sertraline 25 Mg Tab) 25 mg PO QDAY [facility] Last Admin: 12/15/21 09:04 Dose: 25 mg Trazodone HCl (Trazodone 50 Mg Tab) 50 mg PO QHS [facility] Last Admin: 12/14/21 21:38 Dose: 50 mg Results - Results Labs/Vitals: Laboratory Last Values Hemoglobin A1c 6.1 % (4-6) H 12/02/21 11:20 Triglycerides 62 mg/dL (2-149) 12/02/21 11:20 Cholesterol 201 mg/dL (50-199) H 12/02/21 11:20 LDL Cholesterol Direct 112 mg/dL (50-130) 12/02/21 11:20 HDL Cholesterol 82 mg/dL (40-59) H 12/02/21 11:20 Cholesterol/HDL Ratio 2.45 % 12/02/21 11:20 TSH 0.721 mlU/mL (0.270-4.200) 12/02/21 11:20 Hepatitis A IgM Ab Non-reactive (NonReactive) 12/02/21 11:20 Hep Bs Antigen Non-reactive (Negative) 12/02/21 11:20 Hep B Core IgM Ab Non-reactive (NonReactive) 12/02/21 11:20 Hepatitis C Antibody Non-reactive (NonReactive) 12/02/21 11:20 Last Vital Signs Temp 98.4 F 12/15/21 08:37 Pulse 85 12/15/21 08:37 Resp 18 12/15/21 08:37 BP 103/50 12/15/21 08:37 Pulse Ox 95 12/15/21 08:37
[2021-12-15] MEDS: MELATONIN 5 MG TAB PO PRN (21:12)
[2021-12-15] MEDS: traZODone 50 MG TAB PO SCH (21:13)
[2021-12-16 08:58] VITALS: BP 112/59
--- NOTE | 2021-12-16 08:59 | Progress Note ---
Subjective Principal diagnosis: Dementia w/Behavioral Disturbance Subjective Comment: 12/16:The patient was seen today. She states she is doing well " thanking God to be here." She reports sleep and appetite as good.The patient denies any current suicidal/homicidal ideation and denies hallucinations. Awaiting placement. 12/15:Alert and oriented x2. She reports mood as good. She reports sleep and appetite as good.The patient denies any current suicidal/homicidal ideation and denies hallucinations. Awaiting placement. 12/14: The patient was seen today.She states she is doing well " I'm thankful to the lord to see another day. She continues to be forgetful and confused. The patient denies any current suicidal/homicidal ideation and denies hallucinations. 12/13:The patient was seen today. She states she is doing well and mood is good. She reports sleep and appetite as good.The patient denies any current suicidal/homicidal ideation and denies hallucinations. Per nurse, "Pt was restless, agitated, pacing, and insisting on going "home tonight." Resistive to taking her bedtime medications, but accepted them with a lot of persuasion. Pt rested 7.5 hours overnight." 12/12:The patient was seen today. She reports doing fine. She reports sleep and appetite as good.The patient denies any current suicidal/homicidal ideation and denies hallucinations. 12/11: The patient was seen today. The patient is calm, alert to self;she is forgetful but reports doing well "coming along a lot better." She reports sleep and appetite as good.The patient denies any current suicidal/homicidal ideation and denies hallucinations. 12/10:The patient was seen today. She is calm and reports doing well; states sleep and appetite as good. She presents with some forgetfulness. She states mood as good. The patient denies any current suicidal/homicidal ideation and denies hallucinations. 12/09:The patient was seen today. She was sleeping but easily arouses. She says she slept well. The patient says she feels fine. She denies SI/HI or hallucinations. She is awaiting placement. 12/08: The patient was seen today. She is calm and cooperative. She does seem a little irritable today. She denies SI/HI or hallucinations. Staff says the patient continues to [place] and is restless at night 12/06:The patient was seen today. She is pleasant. She denies SI/HI or hallucinations of any time. The patient does have episodes of agitation, according to staff. 12/05 The patient was seen today. She says she is doing fine and denies hallucinations. Staff notes that at times the patient is tearful, agitated and seeking exits 12/04 The patient was seen today. She is sleeping, but easily arouses. She is confused. She says she slept well. She denies SI/HI or hallucinations. 12/03 The patient was seen today. She is calm, cooperative and pleasant. She says she slept good and feels good. She denies SI/HI or hallucinations. Staff says the patient becomes more confused and agitated as the day goes by. She has also been observed responding to internal stimuli and delusional. REVIEW OF SYSTEMS Constitutional: Negative for weight loss ENT: Negative for stridor Respiratory: Negative for cough or hemoptysis All other systems reviewed and are negative MENTAL STATUS EXAMINATION General Appearance and Behavior: Age appropriate, wearing appropriate clothes, cooperative, polite with questioning, good eye contact Cooperation: cooperative Psychomotor Behavior: Psychomotor normal Mood:Ok Affect and affective range: congruent with stated affect Thought Process: Goal directed Thought Content: reality oriented Speech: Normal volume, Regular rate and rhythm Suicidal Ideation: Denies Homicidal Ideation: Denies Hallucination: Denies Delusions: None elicited Impulse Control: Limited Insight and Judgment: Limited Memory: forgetful Attention: attentive Orientation: Alert and oriented Diagnoses: Dementia with behavioral disturbances Treatment Plan Patient will be admitted for inpatient psychiatric evaluation, medication adjustment and close monitoring The patient's behavior, mood, sleep and appetite will be closely monitored. Patient will be enrolled in individual and group therapeutic sessions and encouraged to attend. Patient will be provided with a safe and structured environment. Patient's physical health needs will be addressed by the Hospitalist. Hospitalist Consulted Labs including CBC, CMP, Lipid profile and Hemoglobin A1C ordered Social Assessment will be completed and the Guide Escort will work with patient and family to ensure a suitable and safe disposition Medication adjustment will be made as clinically indicated Continue Melatonin 5mg po qhs prn insomnia No changes made today Usual Wellness Jehov[employer] Witness/Preservation: - Start [place]-3 for brain health, reduce impulsivity, and as adjunctive treatment for mood disorder, continue upon discharge given overall benefits. The patient agreed on the treatment plan, understood the risk, benefit, alternative treatment, potential consequence of no treatment, and gave informed consent. Medications and Allergie Medications and Allergies Allergies Allergy/AdvReac Type Severity Reaction Status Date / Time No Known Allergies Allergy Verified 12/02/21 02:05 Home Medications Medication Instructions Recorded Confirmed Last Taken Type QUEtiapine [SEROquel] 12.5 mg PO DAILY PRN 12/02/21 12/02/21 Unknown History Active Meds: Active Medications Divalproex Sodium (Divalproex Sprinkle 125 Mg Cap) 125 mg PO BID [facility] Last Admin: 12/15/21 21:13 Dose: 125 mg Hydroxyzine Pamoate (Hydroxyzine Pamoate 25 Mg Cap) 25 mg PO DAILY [facility] Last Admin: 12/15/21 09:04 Dose: 25 mg Lorazepam (Lorazepam 0.5 Mg Tab) 0.5 mg PO Q6H PRN PRN Reason: Agitation Last Admin: 12/13/21 13:42 Dose: 0.5 mg Melatonin (Melatonin 5 Mg Tab) 5 mg PO QHS PRN PRN Reason: Sleep Last Admin: 12/15/21 21:12 Dose: 5 mg Risperidone (Risperidone 0.25 Mg Tab) 0.25 mg PO BID [facility] Last Admin: 12/15/21 21:12 Dose: 0.25 mg Sertraline HCl (Sertraline 25 Mg Tab) 25 mg PO QDAY [facility] Last Admin: 12/15/21 09:04 Dose: 25 mg Trazodone HCl (Trazodone 50 Mg Tab) 50 mg PO QHS [facility] Last Admin: 12/15/21 21:13 Dose: 50 mg Results - Results Labs/Vitals: Laboratory Last Values Hemoglobin A1c 6.1 % (4-6) H 12/02/21 11:20 Triglycerides 62 mg/dL (2-149) 12/02/21 11:20 Cholesterol 201 mg/dL (50-199) H 12/02/21 11:20 LDL Cholesterol Direct 112 mg/dL (50-130) 12/02/21 11:20 HDL Cholesterol 82 mg/dL (40-59) H 12/02/21 11:20 Cholesterol/HDL Ratio 2.45 % 12/02/21 11:20 TSH 0.721 mlU/mL (0.270-4.200) 12/02/21 11:20 Hepatitis A IgM Ab Non-reactive (NonReactive) 12/02/21 11:20 Hep Bs Antigen Non-reactive (Negative) 12/02/21 11:20 Hep B Core IgM Ab Non-reactive (NonReactive) 12/02/21 11:20 Hepatitis C Antibody Non-reactive (NonReactive) 12/02/21 11:20 Last Vital Signs Temp 98.7 F 12/15/21 19:17 Pulse 89 12/15/21 19:17 Resp 18 12/15/21 19:17 BP 124/62 12/15/21 19:17 Pulse Ox 98 12/15/21 19:17
[2021-12-16] MEDS: SERTRALINE 25 MG TAB PO SCH (09:00)
[2021-12-16] MEDS: risperiDONE 0.25 MG TAB PO SCH (09:00)
[2021-12-16] MEDS: DIVALPROEX SPRINKLE 125 MG CAP PO SCH (09:00)
[2021-12-16] MEDS: hydrOXYzine PAMOATE 25 MG CAP PO SCH (09:00)
--- NOTE | 2021-12-16 10:24 | Discharge Summary ---
Providers - Providers Date of Admission: 12/01/21 23:59 Date of discharge: 12/16/21 Attending physician: DENG LAMBERT MD 12/01/21 21:23 Consult to Physician [CONS] Routine Comment: Consulting Provider: MINH HERNANDEZ Physician Instructions: Reason For Exam: new psych admission Primary care physician: CARINA DE LA VEGA Hospitalization Reason for admission: Agitation/confusion Admitting Diagnosis: F02.81 - DEMENTIA IN OTH DISEASES CLASSD ELSWHR W BEHAVIORAL DISTURB Condition: Stable Hospital course: The patient was provided inpatient psychiatric treatment with safe and supportive environment, group therapy, psychiatric medication, medication adjustment, adverse effect monitor, medical evaluation, medical treatment, social service assessment, social support meeting and placement assessment. The patients behavior, anxiety and compliance to treatment are improved and stabilized. At the time of discharge, the patient had no suicidal ideas, no homicidal ideas, no aggressive thoughts, no endangering behavior and no debilitating adverse effects. The DPOA/guardian and family agreed on the treatment plan, understood the risk, benefit, alternative treatment, potential consequence of no treatment, and gave informed consent. Progress Note: 12/16:The patient was seen today. She states she is doing well " thanking God to be here." She reports sleep and appetite as good.The patient denies any current suicidal/homicidal ideation and denies hallucinations. Awaiting placement. 12/15:Alert and oriented x2. She reports mood as good. She reports sleep and appetite as good.The patient denies any current suicidal/homicidal ideation and denies hallucinations. Awaiting placement. 12/14: The patient was seen today.She states she is doing well " I'm thankful to the lord to see another day. She continues to be forgetful and confused. The patient denies any current suicidal/homicidal ideation and denies hallucinations. 12/13:The patient was seen today. She states she is doing well and mood is good. She reports sleep and appetite as good.The patient denies any current suicidal/homicidal ideation and denies hallucinations. Per nurse, "Pt was restless, agitated, pacing, and insisting on going "home tonight." Resistive to taking her bedtime medications, but accepted them with a lot of persuasion. Pt rested 7.5 hours overnight." 12/12:The patient was seen today. She reports doing fine. She reports sleep and appetite as good.The patient denies any current suicidal/homicidal ideation and denies hallucinations. 12/11: The patient was seen today. The patient is calm, alert to self;she is forgetful but reports doing well "coming along a lot better." She reports sleep and appetite as good.The patient denies any current suicidal/homicidal ideation and denies hallucinations. 12/10:The patient was seen today. She is calm and reports doing well; states sleep and appetite as good. She presents with some forgetfulness. She states mood as good. The patient denies any current suicidal/homicidal ideation and denies hallucinations. 12/09:The patient was seen today. She was sleeping but easily arouses. She says she slept well. The patient says she feels fine. She denies SI/HI or hallucinations. She is awaiting placement. 12/08: The patient was seen today. She is calm and cooperative. She does seem a little irritable today. She denies SI/HI or hallucinations. Staff says the patient continues to [place] and is restless at night 12/06:The patient was seen today. She is pleasant. She denies SI/HI or hallucinations of any time. The patient does have episodes of agitation, according to staff. 12/05 The patient was seen today. She says she is doing fine and denies hallucinations. Staff notes that at times the patient is tearful, agitated and seeking exits 12/04 The patient was seen today. She is sleeping, but easily arouses. She is confused. She says she slept well. She denies SI/HI or hallucinations. 12/03 The patient was seen today. She is calm, cooperative and pleasant. She says she slept good and feels good. She denies SI/HI or hallucinations. Staff says the patient becomes more confused and agitated as the day goes by. She has also been observed responding to internal stimuli and delusional. Disposition: 30 STILL A PATIENT Allergies/Adverse Reactions: Allergies No Known Allergies Allergy (Verified 12/02/21 02:05) Vital Signs: Last Vital Signs Temp 97.7 F 12/16/21 08:02 Pulse 78 12/16/21 08:02 Resp 16 12/16/21 08:02 BP 112/59 12/16/21 08:02 Pulse Ox 97 12/16/21 08:02 Last Lab: Laboratory Last Values Hemoglobin A1c 6.1 % (4-6) H 12/02/21 11:20 Triglycerides 62 mg/dL (2-149) 12/02/21 11:20 Cholesterol 201 mg/dL (50-199) H 12/02/21 11:20 LDL Cholesterol Direct 112 mg/dL (50-130) 12/02/21 11:20 HDL Cholesterol 82 mg/dL (40-59) H 12/02/21 11:20 Cholesterol/HDL Ratio 2.45 % 12/02/21 11:20 TSH 0.721 mlU/mL (0.270-4.200) 12/02/21 11:20 Hepatitis A IgM Ab Non-reactive (NonReactive) 12/02/21 11:20 Hep Bs Antigen Non-reactive (Negative) 12/02/21 11:20 Hep B Core IgM Ab Non-reactive (NonReactive) 12/02/21 11:20 Hepatitis C Antibody Non-reactive (NonReactive) 12/02/21 11:20 Core Measure Documentation - Palliative Care Palliative Care/ Comfort Measures: Not Applicable - Core Measures Any of the following diagnoses?: none - VTE Discharge Requirements Deep Vein Thrombosis/Pulmonary Embolism Present on Admission: No Exam - Constitutional Vitals: Temp Pulse Resp BP Pulse Ox 97.7 F 78 16 112/59 97 12/16/21 08:02 12/16/21 08:02 12/16/21 08:02 12/16/21 08:02 12/16/21 08:02 Plan Activity: advance as tolerated Weight Bearing Status: Weight Bear as Tolerated Care Plan Goals: Maintain good and stable mental health. Plan of Treatment: The patient should be compliant with medications, not to use drugs and not to drink alcohol.The patient understands that if suicidal ideas, homicidal ideas, or any endangering thoughts/behavior arise, they should immediately seek for emergent assistance including but not limited to crisis hot line and emergency room. Follow up with outpatient Psychiatrist and PCP within 7 - 14 days of discharge. Follow up with: CARINA DE LA VEGA MD [Primary Care Provider] - 7 Days Prescriptions: traZODone [Desyrel] 50 mg PO QHS 30 Days #30 tablet Melatonin [Melatonin 5MG TAB] 5 mg PO QHS PRN 30 Days #30 tablet PRN Reason: Sleep Divalproex Sprinkle [Depakote Sprinkle] 125 mg PO BID 30 Days #60 capsule risperiDONE [RisperDAL] 0.25 mg PO BID 30 Days #60 tablet hydrOXYzine PAMOATE [Vistaril] 25 mg PO DAILY 30 Days #30 capsule Sertraline [Zoloft] 25 mg PO QDAY 30 Days #30 tablet
== END 2021-12-16 14:28 | DRG 884 ==
LOC: UNDOADMIN 15:36 → 3A 15:36 → 5A 23:59
PROVIDERS: ADMIT Psychiatry & Neurology Psychiatry; ATTEND Psychiatry & Neurology Psychiatry
DX: F01.51 Vascular dementia, unspecified severity, with behavioral disturbance (principal); F32.3 Major depressive disorder, single episode, severe with psychotic features; I67.2 Cerebral atherosclerosis; F41.1 Generalized anxiety disorder
CPT/HCPCS: 36415; 80053; 80061; 80074; 80307; 80320; 81001; 83036; 84443; 85025; 96372; 99283; 99284; G0378; G0480; J3486; U0003